=== PATIENT | female | born 1945 | race Caucasian/White ===

== ENCOUNTER → 2019-08-01 15:17 | Outpatient (CLI) | payer SELFPAY ==
--- NOTE | 2019-08-01 15:37 | BI_ITS ---
MAMMOGRAPHY - UNILATERAL SCREENING: RIGHT BREAST REASON FOR EXAM: Female, 73 years old. Routine annual screening examination (unilateral). PERTINENT HISTORY: Personal history of breast cancer. Prior left mastectomy. History mother with breast cancer. TECHNIQUE: Digital unilateral breast kareem (3D mammographic acquisition) in the CC and MLO projections. 2-D mediolateral oblique (MLO) and craniocaudad (CC) views of both breasts were obtained. CAD: Full Field Digital Mammography with Computer Added Detection was performed. COMPARISON: Comparison is made with prior outside examination dated July 29, 2008. FINDINGS: Breast Composition: The breasts are heterogeneously dense, which may obscure small masses. There are no dominant masses or suspicious calcifications. No other significant abnormalities are identified. There has been no significant change since the prior study. BI/SCREEN MAMM (CAD) W/KAREEM UNI R IMPRESSION: Stable unilateral screening mammogram. Yearly follow-up mammogram recommended. (A) ASSESSMENT CATEGORY: BIRADS Category 1: Negative. A letter regarding these results will be sent to the patient by the facility within 30 days. Approximately 10% of breast cancers are not detected by mammography. A normal mammogram should not delay biopsy of a clinically suspicious abnormality. [id number] Electronically Signed: Bartolo Khalil, at 10:37 EDT , Service support ,
== END ==
PROVIDERS: Family Provider Family Medicine; PCP Family Medicine; Referring Provider Internal Medicine Hematology & Oncology; Visit Provider Internal Medicine Hematology & Oncology
DX: Z12.31 Encounter for screening mammogram for malignant neoplasm of breast (principal); Z90.12 Acquired absence of left breast and nipple; Z85.3 Personal history of malignant neoplasm of breast; Z80.3 Family history of malignant neoplasm of breast
CPT/HCPCS: 77061; 77067; G0279

== ENCOUNTER → 2019-10-24 06:00 | Outpatient (CLI) | payer OTHER, SELFPAY ==
[2019-08-07 13:03] VITALS: BMI 44.6
--- NOTE | 2019-10-24 13:01 | STRESSREP ---
Stress Test Report Date: 10-24-19 Procedure: Pharmacologic stress nuclear imaging study Indications: Chest pain; shortness of breath/dyspnea Consent: Per the patient Procedure: The patient underwent pharmacologic (Regadenoson) evaluation with a peak heart rate of 79 beats per minute (53 %predicted maximal heart rate) and a peak blood pressure of 148/70 mmHg. The baseline ECG demonstrated sinus rhythm. The peak pharmacologic ECG demonstrated no obvious ECG changes. There were no cardiac dysrhythmias pretest, during pharmacologic infusion, or recovery. There was no complaint of chest discomfort during pharmacologic infusion or recovery. The examination was discontinued secondary to completion of protocol. Impression: 1. Pharmacologic (Regadenoson) evaluation 2. Peak pharmacologic ECG with no obvious ECG changes. 3. There were no cardiac dysrhythmias pretest, during pharmacologic infusion, or recovery. 4. Nuclear images pending Myocardial perfusion imaging study: Technique: The patient was injected with 12.0 millicuries of technetium 99m Cardiolite and subsequently rest SPECT Cardiolite nuclear imaging was obtained in the horizontal long, vertical long, and short axis views. The patient underwent pharmacologic (Regadenoson) evaluation with a peak heart rate of 79 beats per minute (53 % percent predicted maximal heart rate) and a peak blood pressure of 148/70 mmHg. The patient was injected with 35.0 millicuries of technetium 99m Cardiolite and subsequently stress SPECT Cardiolite nuclear imaging was obtained in the horizontal long, vertical long, and short axis views. A gated Cardiolite study at peak stress was obtained. Interpretation: Rest and stress SPECT Cardiolite nuclear imaging status post realignment, normalization, and attenuation correction demonstrate relative uniform tracer uptake and myocardial perfusion appearing within normal limits. There is end systolic thickening and brightening. The gated Cardiolite study demonstrates myocardial thickening and inward wall motion. The reported LVEF is 73 %. Impression: 1. Rest and stress SPECT Cardiolite nuclear imaging demonstrate relative uniform tracer uptake and myocardial perfusion appearing within normal limits. 2. The gated Cardiolite study reports an LVEF of 73 %. This note was generated with [email or web address] software. It may contain incorrect words, spelling, and punctuation that were not noted in checking the note before signing.
== END ==
PROVIDERS: Family Provider Family Medicine; PCP Family Medicine; Referring Provider Family Medicine; Visit Provider Family Medicine
DX: R07.9 Chest pain, unspecified (principal)
CPT/HCPCS: 78452; 93017; A9500; A4216; J2785

== ENCOUNTER → 2020-08-02 12:58 | Outpatient (CLI) | payer SELFPAY, OTHER ==
[2019-08-07 13:03] VITALS: BMI 44.6
--- NOTE | 2020-08-02 13:02 | BI_ITS ---
MAMMOGRAPHY - UNILATERAL SCREENING: RIGHT BREAST REASON FOR EXAM: Female, 74 years old. Routine annual screening examination (unilateral). PERTINENT HISTORY: Personal history of breast cancer. Mother with breast cancer. Prior left mastectomy. TECHNIQUE: Digital unilateral breast kareem (3D mammographic acquisition) in the CC and MLO projections. 2-D mediolateral oblique (MLO) and craniocaudad (CC) views of both breasts were obtained. CAD: Full Field Digital Mammography with Computer Added Detection was performed. COMPARISON: Comparison is made with prior study dated 08/01/2019. FINDINGS: Breast Composition: The breasts are heterogeneously dense, which may obscure small masses. There are no dominant masses or suspicious calcifications. No other significant abnormalities are identified. There has been no significant change since the prior study. BI/SCREEN MAMM (CAD) W/KAREEM UNI R IMPRESSION: Stable unilateral screening mammogram. Yearly follow-up mammogram recommended. (A) ASSESSMENT CATEGORY: BIRADS Category 1: Negative. A letter regarding these results will be sent to the patient by the facility within 30 days. Approximately 10% of breast cancers are not detected by mammography. A normal mammogram should not delay biopsy of a clinically suspicious abnormality. [id number] Electronically Signed: Bartolo Khalil, at 14:53 EDT , Service support ,
== END ==
PROVIDERS: PCP Family Medicine; Referring Provider Internal Medicine Hematology & Oncology; Visit Provider Internal Medicine Hematology & Oncology
DX: Z12.31 Encounter for screening mammogram for malignant neoplasm of breast (principal); Z85.3 Personal history of malignant neoplasm of breast; Z90.12 Acquired absence of left breast and nipple; Z80.3 Family history of malignant neoplasm of breast
CPT/HCPCS: 77063; 77067

== ENCOUNTER → 2021-08-03 10:26 | Outpatient (CLI) | payer SELFPAY, OTHER ==
[2019-08-07 13:03] VITALS: BMI 44.6
--- NOTE | 2021-08-03 10:29 | BI_ITS ---
MAMMOGRAPHY - UNILATERAL SCREENING: RIGHT BREAST REASON FOR EXAM: Female, 75 years old. Routine annual screening examination (unilateral). PERTINENT HISTORY: Personal history of breast cancer. Prior left mastectomy. Mother with breast cancer. TECHNIQUE: Digital unilateral breast kareem (3D mammographic acquisition) in the CC and MLO projections. 2-D mediolateral oblique (MLO) and craniocaudad (CC) views of both breasts were obtained. CAD: Full Field Digital Mammography with Computer Added Detection was performed. COMPARISON: Comparison is made with prior study dated 08/02/2020 and 08/01/2000. FINDINGS: Breast Composition: The breasts are heterogeneously dense, which may obscure small masses. There are no dominant masses or suspicious calcifications. No other significant abnormalities are identified. There has been no significant change since the prior study. BI/SCREEN MAMM (CAD) W/KAREEM UNI R IMPRESSION: Stable unilateral screening mammogram. Yearly follow-up mammogram recommended. (A) ASSESSMENT CATEGORY: BIRADS Category 1: Negative. A letter regarding these results will be sent to the patient by the facility within 30 days. Approximately 10% of breast cancers are not detected by mammography. A normal mammogram should not delay biopsy of a clinically suspicious abnormality. [id number] Electronically Signed: Bartolo Khalil MD at 11:15 EDT , Service support ,
== END ==
PROVIDERS: PCP Family Medicine; Referring Provider Internal Medicine Hematology & Oncology; Visit Provider Internal Medicine Hematology & Oncology
DX: Z12.31 Encounter for screening mammogram for malignant neoplasm of breast (principal)
CPT/HCPCS: 77063; 77067

== ENCOUNTER 2021-11-08 15:49 | Outpatient (CLI) | payer SELFPAY ==
[2021-11-08 18:03] LABS: Absolute Lymphocyte Count 1.13 X10^3/uL (0.83-4.51); Absolute Neutrophil Count 13.9 X10^3/uL (2.0-7.7); Basophil# 0.05 X10^3/uL; Basophil% 0.3 % (0-1); Eosinophils% 0.6 % (0-5); Hematocrit 36.7 % (37-47); Hemoglobin 11.8 g/dL (12.0-15.0); Lymphocyte # 1.13 X10^3/ul (0.83-4.51); Lymphocyte % 6.8 % (19-41); Mean Corp Hgb Conc 32.2 g/dL (32-36); Mean Corpuscular Hgb 28.6 pg (27.0-32.0); Mean Corpuscular Volume 89.1 fL (81-99); Mean Platelet Vol. 10.5 fl (6.2-12.0); Monocyte# 1.35 X10^3/uL; Monocyte% 8.1 % (0-10); NRBC Flagged by Analyzer 0 % (0-5); Neutrophil # 13.85 X10^3/uL (2.7-7.7); Neutrophil % 83.4 % (47-70); Platelet Count 192 K/mm3 (150-450); RBC Distribution Width SD 45.3 fl (35.1-43.9); Red Blood Count 4.12 M/mm3 (4.2-5.4); White Blood Count 16.6 K/mm3 (4.4-11.0)
[2021-11-08 18:24] LABS: Erythrocyte Sedimentation Rate 63 mm/hr (0-30)
== END 2021-11-08 23:59 | disposition short-term general hospital (02) ==
PROVIDERS: Referring Provider Specialist; Visit Provider Specialist
DX: Z96.652 Presence of left artificial knee joint (principal)
CPT/HCPCS: 36415; 85025; 85652; 86140

== ENCOUNTER 2021-11-10 09:53 | Inpatient (IN) | payer OTHER, SELFPAY ==
[2021-11-10] VITALS (7 sets, daily range): BP systolic 124–148; BP diastolic 47–63; PULSE 66–72; RESP 14–26; TEMP 36.4–37.1; O2SAT 93–100; BMI 39.3; BMI 39.7
--- NOTE | 2021-11-10 10:45 | EKG12_ITS ---
Test Reason : LOWER QUAD PAIN Blood Pressure : / mmHG Vent. Rate : 063 BPM Atrial Rate : 063 BPM P-R Int : 160 ms QRS Dur : 078 ms QT Int : 406 ms P-R-T Axes : 012 033 018 degrees QTc Int : 415 ms Sinus rhythm with occasional Premature ventricular complexes Otherwise normal ECG Confirmed by CHRISTY BLACKBURN, GIGI ([id number]), newspaper editor managing DEMETRA GIL ([id number]) on 11/14/2021 10:27:14 AM Referred By: REILLY Confirmed By:GIGI HARRISON MD
[2021-11-10 10:50] LABS: Absolute Lymphocyte Count 0.99 X10^3/uL (0.83-4.51); Absolute Neutrophil Count 10.1 X10^3/uL (2.0-7.7); Basophil# 0.03 X10^3/uL; Basophil% 0.2 % (0-1); Eosinophil# 0.01 X10^3/uL; Eosinophils% 0.1 % (0-5); Hematocrit 36.1 % (37-47); Hemoglobin 11.5 g/dL (12.0-15.0); Lymphocyte # 0.99 X10^3/ul (0.83-4.51); Lymphocyte % 7.9 % (19-41); Mean Corp Hgb Conc 31.9 g/dL (32-36); Mean Corpuscular Hgb 28.2 pg (27.0-32.0); Mean Corpuscular Volume 88.5 fL (81-99); Mean Platelet Vol. 10.3 fl (6.2-12.0); Monocyte# 1.34 X10^3/uL; Monocyte% 10.7 % (0-10); NRBC Flagged by Analyzer 0 % (0-5); Neutrophil # 10.12 X10^3/uL (2.7-7.7); Neutrophil % 80.5 % (47-70); Platelet Count 168 K/mm3 (150-450); RBC Distribution Width CV 14.3 % (11.6-14.6); RBC Distribution Width SD 46.1 fl (35.1-43.9); Red Blood Count 4.08 M/mm3 (4.2-5.4); White Blood Count 12.6 K/mm3 (4.4-11.0)
--- NOTE | 2021-11-10 11:05 | ED.VIS.LOWEX ---
HPI History of Present Illness Chief Complaint: Lower Extremity Injury Narrative Narrative: 76-year-old female presenting with left knee pain. She states been hurting since Sunday. Patient states he was seen in urgent care on Sunday and they did blood work and an x-ray of the left knee. She states that she was told sent home from the urgent care. She has been using a wheelchair at home. She does not usually require this. She states that her son went and faxed 1 for her. She presents today because the urgent care called her and told her she had abnormal lab work. Patient has not had a fever or chills. She does note increasing pain of the left knee. She is unable to bear weight on this. She notices she notes it is more swollen. [facility] Medical History Arthritis HTN (hypertension) LEFT KNEE IRRIGATION Thyroid disease Home Medications Fish Oil 1,000 mg PO DAILY 05/18/15 [History Last Taken 12/15/15] ferrous sulfate 325 mg PO DAILY 05/18/15 [History Last Taken 12/15/15] fluoxetine 20 mg PO DAILY 05/18/15 [History Last Taken 12/15/15] acetaminophen [Tylenol] 650 mg PO Q6H PRN PRN #0 tablet 10/23/15 [Rx Last Taken 12/15/15] alprazolam 1 mg PO Q6H PRN PRN #0 tablet 10/23/15 [Rx Last Taken 01/19/16 1 MG] pyridoxine (vitamin B6) 100 mg PO DAILY 12/15/15 [History Last Taken 12/15/15] aspirin 81 mg PO DAILY@0800 08/02/17 [History Last Taken Unknown] Quiet 0.75 mg PO QHS 08/05/18 [History Last Taken Unknown] hydrochlorothiazide 12.5 mg PO DAILY 08/09/20 [History Last Taken Unknown] levothyroxine 112 mcg tablet 125 mcg PO DAILY tab 08/10/21 [History Last Taken Unknown] Allergy/AdvReac Type Severity Reaction Status Date / Time celecoxib [From Celebrex] AdvReac Severe Nausea Verified 11/10/21 09:55 Family History Father Bone cancer Mother Breast cancer Surgical History History of cataract surgery History of mastectomy History of total left knee replacement History of total right knee replacement Social History Smoking Status: Never smoker ROS ROS ED Constitutional Constitutional ED: Denies chills or fever(s) Eyes Eyes: Denies blurry vision or diplopia ENT ENT ED: Denies rhinorrhea or sore throat Cardiovascular Cardiovascular: Denies chest pain or palpitations Respiratory/Chest Respiratory/Chest: Denies cough or dyspnea Gastrointestinal Gastrointestinal: Denies abdominal pain or nausea Genitourinary Genitourinary ED: Denies dysuria or hematuria Musculoskeletal Musculoskeletal: Reports other Details: Left knee pain and swelling Integumentary Reports other Details: Erythema and warmth to the left knee Neurologic Neurologic: Denies headache(s) or paresthesias Psychiatric Psychiatric: Denies anxiety or depression EXAM Physical Exam Const Vital Signs: 11/10/21 09:54 11/10/21 10:45 11/10/21 11:35 Temperature 98.1 F 97.9 F Temperature Source Temporal Temporal Pulse Rate 67 Respiratory Rate 14 Blood Pressure 124/59 H Blood Pressure Mean 80 Pulse Ox 100 Oxygen Delivery Method Room Air Room Air 11/10/21 11:53 11/10/21 13:21 Temperature 98 F 97.8 F Temperature Source Temporal Temporal Pulse Rate 66 Respiratory Rate 26 H Blood Pressure 140/52 H Blood Pressure Mean 81 Pulse Ox 96 Oxygen Delivery Method Room Air Positive obese General Appearance ED: NAD Nutritional Appearance: obese HEENT normocephalic and atraumatic Neck full ROM Resp normal respiratory effort and clear to auscultation bilaterally Cardio regular rate and regular rhythm Extremity Extremity Narrative: Swelling and increased warmth to the left knee. There are some areas of erythema around the knee. Patient unable to range her own knee however she does allow me to range her knee. Pain is elicited with range of motion. Neuro oriented x3 Sensorium / Orientation: alert Psych mental status grossly normal MDM MDM MDM Narrative Medical decision making narrative: After discussion with the patient states he has a history of an infected knee on the left. She states that Dr. Murphy was her orthopedic surgeon. She states she had had to have her prosthetic removed due to infection and this was replaced later. I spoke with Dr. Murphy and discussed the x-ray finding of the knee with a fracture of the lateral femoral condyle and that the patient's knee was swollen and red. He recommended arthrocentesis and admission for septic knee. Patient noted to have a 16,000 white count on Sunday and today it is 12.6. Creatinine is 1.17 and near baseline. Potassium slightly low at 3.4. Lactic acid 1.3. CRP is elevated to 341 and sedimentation rate is elevated at 99. Both of these are higher than previous. Dr. Murphy requested admit the patient to medicine. He states he will come by and drained the knee and send it for studies. Patient will likely need this washed out surgically. Impression: 1. Septic left knee joint Lab Data Attestation: I reviewed the patient's lab results. Labs: Laboratory Results - last 24 hr 11/10/21 11/10/21 11/10/21 10:40 10:40 11:03 WBC 12.6 H RBC 4.08 L Hgb 11.5 L Hct 36.1 L MCV 88.5 MCH 28.2 MCHC 31.9 L RDW Std Deviation 46.1 H RDW Coeff of Luz Maria 14.3 Plt Count 168 MPV 10.3 Immature Gran % (Auto) 0.600 Neut % (Auto) 80.5 H Lymph % (Auto) 7.9 L [place] % (Auto) 10.7 H Eos % (Auto) 0.1 Baso % (Auto) 0.2 Absolute Neuts (auto) 10.1 H Absolute Lymphs (auto) 0.99 Nucleated RBC % 0 ESR 99 H PT INR APTT Sodium 136 Potassium 3.4 L Chloride 102 Carbon Dioxide 27.0 Anion Gap 7 BUN 24 H Creatinine 1.17 H Estim Creat Clear Calc 37.96 Est GFR (MDRD) Af Amer 58 L Est GFR (MDRD) Non-Af 48 L BUN/Creatinine Ratio 20.5 H Glucose 111 H Lactic Acid Calcium 8.8 Total Bilirubin 0.70 Cancelled Direct Bilirubin Cancelled AST 18 ALT 28 Alkaline Phosphatase 89 Troponin I High Sens 6 C-React Prot Ext Range 341.00 H Total Protein 7.7 Albumin 2.5 L Globulin 5.2 H Albumin/Globulin Ratio 0.5 L 11/10/21 11/10/21 11:25 11:30 WBC RBC Hgb Hct MCV MCH MCHC RDW Std Deviation RDW Coeff of Lu Zmaria Plt Count MPV Immature Gran % (Auto) Neut % (Auto) Lymph % (Auto) [place] % (Auto) Eos % (Auto) Baso % (Auto) Absolute Neuts (auto) Absolute Lymphs (auto) Nucleated RBC % ESR PT 14.4 INR 1.2 APTT 33.1 Sodium Potassium Chloride Carbon Dioxide Anion Gap BUN Creatinine Estim Creat Clear Calc Est GFR (MDRD) Af Amer Est GFR (MDRD) Non-Af BUN/Creatinine Ratio Glucose Lactic Acid 1.3 Calcium Total Bilirubin Direct Bilirubin AST ALT Alkaline Phosphatase Troponin I High Sens C-React Prot Ext Range Total Protein Albumin Globulin Albumin/Globulin Ratio Radiography Diagnostic Testing: Clinical Impression(s) from Imaging Studies Chest X-Ray 11/10/21 13:06 IMPRESSION: Hyperinflation. The lungs are clear. Electronically Signed: Bartolo Khalil MD at 13:26 EST , Service support , Discharge Plan Triage Chief Complaint: Lower Extremity Injury ED Provider: Jaquan Gomes Dx/Rx/DC Orders Prescriptions: No Action ferrous sulfate 325 MG tablet 325 mg PO DAILY RF: 0 fluoxetine 20 MG capsule 20 mg PO DAILY RF: 0 Fish Oil 500 MG capsule 1,000 mg PO DAILY RF: 0 acetaminophen [Tylenol] 325 MG tablet 650 mg PO Q6H PRN PRN (Reason: PAIN) Qty: 0 RF: 0 alprazolam 0.5 MG tablet 1 mg PO Q6H PRN PRN (Reason: ANXIETY) Qty: 0 RF: 0 pyridoxine (vitamin B6) 100 MG tablet 100 mg PO DAILY RF: 0 levothyroxine 112 mcg tablet 125 mcg PO DAILY RF: 0 aspirin 81 MG tablet,chewable 81 mg PO DAILY@0800 RF: 0 Quiet 0.25 MG 0.75 mg PO QHS RF: 0 hydrochlorothiazide 25 MG tablet 12.5 mg PO DAILY RF: 0 Primary Care Provider: Malena Vargas
[2021-11-10 11:10] LABS: Erythrocyte Sedimentation Rate 99 mm/hr (0-30)
[2021-11-10 11:14] LABS: ALB/GLOB Ratio 0.5 RATIO (0.9-2.4); AST(SGOT) 18 U/L (15-37); Alanine Aminotransfer ALT/SGPT 28 U/L (13-56); Albumin, Serum 2.5 g/dL (3.2-5.0); Alkaline Phosphatase 89 U/L (45-117); Anion Gap 7 (5-15); BUN 24 mg/dL (7-18); BUN/Creat Ratio 20.5 RATIO (10-20); Calcium,Total 8.8 mg/dL (8.5-10.1); Chloride 102 mmol/L (98-107); Creatinine, Serum 1.17 mg/dL (0.55-1.02); EST Glomerular Filtration Rate 48 mL/min (>60); Est Glom Filt Rate - Afr Amer 58 mL/min (>60); Estimated Creatinine Clearance 37.96 ml/min; Globulin 5.2 g/dL (2.2-4.2); Glucose 111 mg/dL (74-106); Potassium 3.4 mmol/L (3.5-5.1); Protein, Total 7.7 g/dL (6.4-8.2); Sodium Level 136 mmol/L (136-145); Troponin-I HS 6 pg/mL (3.0-54.0)
[2021-11-10] MEDS: Ondansetron 4 MG/2 ML Vial IV (11:15)
[2021-11-10] MEDS: Morphine 4 MG/ML Syringe IV (11:15)
[2021-11-10] MEDS: 0.9% Normal Saline 1,000 ML 999 ML IV (11:16)
[2021-11-10] MEDS: Lidocaine 1% (20 ml mdv) 20 ML Vial INFILT (11:17)
[2021-11-10 11:49] LABS: International Normalized Ratio 1.2; Prothrombin Time (Protime)PT. 14.4 SECONDS (11.7-14.9)
[2021-11-10 11:50] LABS: Partial Thromboplast Time 33.1 Seconds (24.1-36.2)
[2021-11-10 12:00] LABS: Lactic Acid 1.3 mmol/L (0.4-1.9)
--- NOTE | 2021-11-10 13:06 | RAD_ITS ---
STUDY: X-RAY CHEST REASON FOR EXAM: Female, 76 years old. Preoperative evaluation. TECHNIQUE: Single AP portable view of the chest. COMPARISON: Comparison is made with prior study dated 12/15/2015. FINDINGS: EKG electrodes are seen. There is hyperinflation of the lungs consistent with chronic obstructive lung disease (COPD). There is no demonstrated pleural abnormality. Normal size heart. Normal mediastinum and [place]. Normal visualized pulmonary arteries. There is atherosclerotic calcification of the aortic arch with tortuosity. There are diffuse degenerative changes of the visualized thoracic spine. Normal visualized ribs, clavicles, and shoulders. There is no demonstrated abnormality of the visualized soft tissue structures of the upper abdomen. RAD/Chest 1 View (Portable) IMPRESSION: Hyperinflation. The lungs are clear. Electronically Signed: Bartolo Khalil MD at 13:26 EST , Service support ,
--- NOTE | 2021-11-10 13:23 | NURSING ---
ICU [facility]PT[facility]
--- NOTE | 2021-11-10 13:46 | HP.PCM.HOS_ITS ---
HPI - General HPI Narrative KARINE FAIRCHILD, is a 76 F who presents with several day history of left knee pain and swelling. Saw urgent care on 11/08 and had a CRP of 247, left knee xray that showed a possible nondisplaced fracture involving the lateral femoral condyle and an effusion. She was sent home. Dr. Murphy advised patient come to the emergency room. In the emergency room, her white count was 12.6 down from 16.6 from the fourth. CRP was 341. Dr. Gomes, the emergency room, spoke with Dr. Murphy who said he would see the patient and perform a bedside arthrocentesis later on today. Patient states that this feels similar to when she had a previous septic arthritis back in . [facility] Medical History Arthritis HTN (hypertension) LEFT KNEE IRRIGATION Thyroid disease Home Medications Fish Oil 1,000 mg PO DAILY 05/18/15 [History Last Taken 12/15/15] ferrous sulfate 325 mg PO DAILY 05/18/15 [History Last Taken 12/15/15] fluoxetine 20 mg PO DAILY 05/18/15 [History Last Taken 12/15/15] acetaminophen [Tylenol] 650 mg PO Q6H PRN PRN #0 tablet 10/23/15 [Rx Last Taken 12/15/15] alprazolam 1 mg PO Q6H PRN PRN #0 tablet 10/23/15 [Rx Last Taken 01/19/16 1 MG] pyridoxine (vitamin B6) 100 mg PO DAILY 12/15/15 [History Last Taken 12/15/15] aspirin 81 mg PO DAILY@0800 08/02/17 [History Last Taken Unknown] Quiet 0.75 mg PO QHS 08/05/18 [History Last Taken Unknown] hydrochlorothiazide 12.5 mg PO DAILY 08/09/20 [History Last Taken Unknown] levothyroxine 112 mcg tablet 125 mcg PO DAILY tab 08/10/21 [History Last Taken Unknown] Allergy/AdvReac Type Severity Reaction Status Date / Time celecoxib [From Celebrex] AdvReac Severe Nausea Verified 11/10/21 09:55 Family History Father Bone cancer Mother Breast cancer Surgical History History of cataract surgery History of mastectomy History of total left knee replacement History of total right knee replacement Social History Smoking Status: Never smoker ROS ROS Narrative Complains of pain in her left knee limited due to the swelling that she has. Denies any fever chills. All review of systems were negative except as mentioned above in the history of present illness and the other review of systems. Vital Signs Vital Signs Vital Signs: 11/10/21 09:54 11/10/21 10:45 11/10/21 11:35 Temperature 36.7 C 36.6 C Temperature Source Temporal Temporal Pulse Rate 67 Respiratory Rate 14 Blood Pressure 124/59 H Blood Pressure Mean 80 Pulse Ox 100 Oxygen Delivery Method Room Air Room Air 11/10/21 11:53 11/10/21 13:21 Temperature 36.6 C 36.6 C Temperature Source Temporal Temporal Pulse Rate 66 Respiratory Rate 26 H Blood Pressure 140/52 H Blood Pressure Mean 81 Pulse Ox 96 Oxygen Delivery Method Room Air Weight Weight: 107.2 kg Body Mass Index (BMI) 39.3 Physical Exam Const alert General Appearance: cooperative HEENT normocephalic Neck no lymphadenopathy Resp normal respiratory effort Cardio regular rate, regular rhythm, S1 normal heart sound and S2 normal heart sound GI normal to inspection, nondistended, normoactive bowel sounds, soft to palpation, non-tender and non-distended Extremity normal to inspection Extremity Narrative: Left knee effusion. Limited mobility of her left knee due to the effusion. Slightly tender but not hot nor warm. No erythema around her left knee. Right knee is unremarkable with full range of motion. No effusion noted. Skin no rashes or lesions noted Neuro Sensorium / Orientation: awake and alert Psych affect normal Results Lab / Micro Data Attestation: I reviewed the patient's lab results. Result Diagrams: 11/10/21 10:40 11/10/21 10:40 Labs: Laboratory Results - last 24 hr 11/10/21 10:40: WBC 12.6 H, RBC 4.08 L, Hgb 11.5 L, Hct 36.1 L, MCV 88.5, MCH 28.2, MCHC 31.9 L, RDW Std Deviation 46.1 H, RDW Coeff of Luz Maria 14.3, Plt Count 168, MPV 10.3, Immature Gran % (Auto) 0.600, Neut % (Auto) 80.5 H, Lymph % (Auto) 7.9 L, [place] % (Auto) 10.7 H, Eos % (Auto) 0.1, Baso % (Auto) 0.2, Absolute Neuts (auto) 10.1 H, Absolute Lymphs (auto) 0.99, Nucleated RBC % 0, ESR 99 H 11/10/21 10:40: Sodium 136, Potassium 3.4 L, Chloride 102, Carbon Dioxide 27.0, Anion Gap 7, BUN 24 H, Creatinine 1.17 H, Estim Creat Clear Calc 37.96, Est GFR (MDRD) Af Amer 58 L, Est GFR (MDRD) Non-Af 48 L, BUN/Creatinine Ratio 20.5 H, Glucose 111 H, Calcium 8.8, Total Bilirubin 0.70, AST 18, ALT 28, Alkaline Phosphatase 89, Troponin I High Sens 6, C-React Prot Ext Range 341.00 H, Total Protein 7.7, Albumin 2.5 L, Globulin 5.2 H, Albumin/Globulin Ratio 0.5 L 11/10/21 11:03: Total Bilirubin Cancelled, Direct Bilirubin Cancelled 11/10/21 11:25: Lactic Acid 1.3 11/10/21 11:30: PT 14.4, INR 1.2, APTT 33.1 Micro: Microbiology 11/10/21 11:20 Nasal Secretion SARS-CoV-2 Antigen (Rapid) - Final Radiology Impression Chest X-Ray 11/10/21 13:06 IMPRESSION: Hyperinflation. The lungs are clear. Electronically Signed: Bartolo Khalil MD at 13:26 EST , Service support , Assessment & Plan Assessment/Plan (1) Effusion, left knee: PLAN: 1. Possible septic arthritis of the left knee Patient is not septic Does have an elevated white count as well as elevated CRP Plan is for an arthrocentesis to be performed by Dr. Murphy today After the arthrocentesis, will initiate antibiotics with broad-spectrum with Pipracil and/tazobactam and vancomycin. Follow-up cultures from the arthrocentesis and adjust antibiotics accordingly if it is truly infected. And if infected further management per orthopedics and would likely consul infectious disease at that point. 2. VTE prophylaxis: Lovenox 3. CODE STATUS: Addressed with the patient and her . Patient wishes to be DNR Com[facility] Care arrest. Advised them both that she can change her mind at any point during her hospitalization. Charges/Coding Visit Charges Inpatient E&M: 55763 Init Hosp L2
--- NOTE | 2021-11-10 14:01 | ED.RN ---
multiple unsuccessful attempts made by ED staff and lab for second set of blood cultures. Dr Gomes made aware.
[2021-11-10 15:14] LABS: Bacteria 0 SEEN /hpf (None Seen); Mucous, Urine 0 SEEN /hpf (<or=2+)
[2021-11-10 15:19] LABS: Color, Urine Yellow (Yellow); Glucose, Dipstick Normal (Normal); Ketone-Dipstick Negative (Negative); Leukocyte Esterase-Dipstick 500 /ul (Negative); Nitrite-Dipstick Negative (Negative); Occult Blood-Urine 25 /ul (Negative); Protein-Dipstick 100 mg/dl (Negative); Urine Bilirubin Dipstick Negative (Negative); Urine Clarity Clear (Clear); Urine Urobilinogen 1 mg/dl (Normal)
--- NOTE | 2021-11-10 15:20 | CASEMGMT ---
Face to Face with patient for initial transition planning/care coordination assessment. RN CM introduced self and role at [facility]. Patient alert and oriented, in no apparent distress, able to answer all questions appropriately. Patient's Beau present at bedside. Care providers, pharmacy, and demographics verified. PCP: Malena Vargas Pharmacy: [facility] Insurance: [employer] Prescription Benefit: No Living Will/HPOA: Patient denies having living will or HPOA. LNOK: - Beau Ceballos Living Arrangements: Patient lives with in one story house with 3 steps to enter the home with handrail. Patient states independent with ADLs prior to onset of knee pain 11/07/21, but now unable to bear weight and requires assistance with ADLs. Patient's son lives across the street and is available to help. Smoking/ETOH: Never smoker, denies ETOH use Transportation: Hired fuel truck driver DME/HHC/SNF: Patient has been using wheelchair for mobility prior to hospitalization due to severe knee pain. Patient also has cane, walker, shower chair and grab bars available in the home. Patient has had previous HHC and home IV antibiotic infusions for septic joint with [facility] and states would be interested in using these services again, if indicated. Denies previous SNF stays. RN CM to follow for any discharge planning/needs. Patient voices no concerns/needs at this time. Advised patient and to ask for CM if any questions/concerns/needs arise. Voices understanding. Plan: home with HHC, pending further medical evaluation
[2021-11-10 16:06] LABS: Squamous Epithelial Cells - UA 0-5 SEEN /hpf (5-10); White Blood Cells 5-10 SEEN /hpf (0-5)
[2021-11-10 16:08] LABS: Red Blood Cells-Urine 0-5 SEEN /hpf (0-5); Renal Epithelial Cells 0-5 SEEN /hpf (0-5)
--- NOTE | 2021-11-10 17:15 | ED.RN ---
Dr Murphy at bedside to drain knee
[2021-11-10 17:30] LABS: Pathologist Comment May follow
--- NOTE | 2021-11-10 17:33 | CON.PCM_ITS ---
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 She presents today with concerns for similar issue. An aspiration was done. Please see procedure note following however we did obtain 15 cc of grossly purulent fluid. Based on patient's history as well as a appropriate aspiration today we will start antibiotics. She was previously pansensitive we will start ceftriaxone and vancomycin. We will make the patient n.p.o. after midnight. Plans will be for irrigation debridement removal of the implant and placement of an antibiotic spacer. Patient understands risks of continued infection including risk for repeat surgeries, blood loss requiring transfusion, DVTs, PEs, nervous damage, loss of extremity, loss of life and general risk of anesthesia as well as risk of fractures during surgery and need for osteotomy are all possible. Patient wished to proceed. I do not see how we can salvage the implants based on the radiographs consistent with tibial cement mantle loosening. We will attempt to arrange surgery for the next 24 to 48 hours d epending on or availability. At this point if we do like to delay surgery for medical reasons it would be unlikely to change her overall outcome while he would like to take care of this expediently we will do what is medically appropriate. Procedure: Patient's left superior lateral suprapatellar portal was palpated. The area was cleaned with Betadine then chlorhexidine and alcohol sterile gloves were donned. 18-gauge needle was used to remove 15 cc of grossly purulent fluid from the knee. Band-Aid was placed afterwards. HPI Consult Data Date of Consult: 11/10/21 HPI Narrative Reason for Consultation: Left knee pain HPI Narrative: KARINE FAIRCHILD, is a 76 F who morbidly obese with a history of left knee infection status post total knee replacement. Patient had original total knee replacement in 2013. She had irrigation debridement with retainment of implants in May 2015. She had continued infection in October 2015 where we did an explant and placed an antibiotic spacer. She was subsequently replanted and January 2016. Cultures at that time were positive for Enterococcus faecalis. Patient notes she was doing well she had her 3-year follow-up in 2018 without any significant issues. However she has had some continued pain and soreness in the knee especially with activities throughout that time. On Sunday of this week she was noted to have increased pain. Pain is in the knee and down the fernandez bone. She went to the urgent care and was noted to have extremely elevated ESR and CRP. She was directed to the emergency department from there. Today she is unable to bear weight. She denies any fevers chills or night sweats. No erythema of the knee. However the knee has significantly increased in size due to swelling. [facility] Medical History (Updated 11/10/21 @ 17:[address] Judson Murphy MD) Arthritis HTN (hypertension) Infection of total left knee replacement LEFT KNEE IRRIGATION Thyroid disease Home Medications Fish Oil 1,000 mg PO DAILY 05/18/15 [History Last Taken 12/15/15] ferrous sulfate 325 mg PO DAILY 05/18/15 [History Last Taken 12/15/15] fluoxetine 20 mg PO DAILY 05/18/15 [History Last Taken 12/15/15] acetaminophen [Tylenol] 650 mg PO Q6H PRN PRN #0 tablet 10/23/15 [Rx Last Taken 12/15/15] alprazolam 1 mg PO Q6H PRN PRN #0 tablet 10/23/15 [Rx Last Taken 01/19/16 1 MG] pyridoxine (vitamin B6) 100 mg PO DAILY 12/15/15 [History Last Taken 12/15/15] aspirin 81 mg PO DAILY@0800 08/02/17 [History Last Taken Unknown] Quiet 0.75 mg PO QHS 08/05/18 [History Last Taken Unknown] hydrochlorothiazide 12.5 mg PO DAILY 08/09/20 [History Last Taken Unknown] levothyroxine 112 mcg tablet 125 mcg PO DAILY tab 08/10/21 [History Last Taken Unknown] Allergy/AdvReac Type Severity Reaction Status Date / Time celecoxib [From Celebrex] AdvReac Severe Nausea Verified 11/10/21 09:55 Family History Father Bone cancer Mother Breast cancer Surgical History (Updated 11/10/21 @ 17:[address] Judson Murphy MD) History of cataract surgery History of mastectomy History of total left knee replacement History of total right knee replacement Status post revision of total replacement of left knee Social History Smoking Status: Never smoker ROS Constitutional Constitutional: Reports systems reviewed and no addt'l complaints, except as documented Physical Exam Const alert and oriented x3 Constitutional Narrative: obese General Appearance: cooperative and in distress Orientation / Consciousness: awake, oriented to person, oriented to place and oriented to time Exam Limitations: physical limitations Nutritional Appearance: overweight HEENT normocephalic Nose: nares normal Mouth: oral and palatal mucosa normal Eyes PERRL Resp normal respiratory effort Cardio regular rate Jugular Venous Distention: Negative for JVD GI non-distended Extremity Extremity Narrative: Left lower extremity: Pain with gentle range of motion. Tenderness along the tibia shaft. Limited strength exam secondary to pain. Massive effusion. No erythema. Tenderness palpation around the entire knee. Neurovascular intact distally with sensation intact light touch saphenous, sural, superficial peroneal, deep peroneal tibial nerve distributions. Positive dorsiflexion EHL plantar flexion. Skin no rashes or lesions noted and no wounds Neuro Speech: speech normal Psych mental status grossly normal Appearance: grossly normal Lab / Micro Data Result Diagrams: 11/10/21 10:40 11/10/21 10:40 Labs: Laboratory Results - last 24 hr 11/10/21 10:40: WBC 12.6 H, RBC 4.08 L, Hgb 11.5 L, Hct 36.1 L, MCV 88.5, MCH 2 8.2, MCHC 31.9 L, RDW Std Deviation 46.1 H, RDW Coeff of Luz Maria 14.3, Plt Count 168, MPV 10.3, Immature Gran % (Auto) 0.600, Neut % (Auto) 80.5 H, Lymph % (Auto) 7.9 L, [place] % (Auto) 10.7 H, Eos % (Auto) 0.1, Baso % (Auto) 0.2, Absolute Neuts (auto) 10.1 H, Absolute Lymphs (auto) 0.99, Nucleated RBC % 0, ESR 99 H 11/10/21 10:40: Sodium 136, Potassium 3.4 L, Chloride 102, Carbon Dioxide 27.0, Anion Gap 7, BUN 24 H, Creatinine 1.17 H, Estim Creat Clear Calc 37.96, Est GFR (MDRD) Af Amer 58 L, Est GFR (MDRD) Non-Af 48 L, BUN/Creatinine Ratio 20.5 H, Glucose 111 H, Calcium 8.8, Total Bilirubin 0.70, AST 18, ALT 28, Alkaline Phosphatase 89, Troponin I High Sens 6, C-React Prot Ext Range 341.00 H, Total Protein 7.7, Albumin 2.5 L, Globulin 5.2 H, Albumin/Globulin Ratio 0.5 L 11/10/21 11:03: Total Bilirubin Cancelled, Direct Bilirubin Cancelled 11/10/21 11:25: Lactic Acid 1.3 11/10/21 11:30: PT 14.4, INR 1.2, APTT 33.1 11/10/21 15:10: Urine Color Yellow, Urine Clarity Clear, Urine pH 5.0, Ur Specific [place] 1.020, Urine Protein 100 H, Urine Glucose (UA) Normal, Urine Ketones Negative, Urine Occult Blood 25 H, Urine Nitrite Negative, Urine Bilirubin Negative, Urine Urobilinogen 1 H, Ur Leukocyte Esterase 500 H, Urine RBC 0-5 SEEN, Urine WBC 5-10 SEEN, Ur Squamous Epith Cells 0-5 SEEN, Ur Renal Epithelial Cell 0-5 SEEN, Urine Bacteria 0 SEEN, Urine Mucus 0 SEEN Micro: Microbiology 11/10/21 11:20 Nasal Secretion SARS-CoV-2 Antigen (Rapid) - Final Radiology Impression Chest X-Ray 11/10/21 13:06 IMPRESSION: Hyperinflation. The lungs are clear. Electronically Signed: Bartolo Khalil MD at 13:26 EST , Service support , Left knee radiographs were reviewed from Sunday 3. Patient has an appropriately aligned knee replacement however, there is lucencies around the entirety of the tibial cement mantle. Do not see the proximal aspect of the femoral cement mantle on radiographs. We will order new femur x-rays.
--- NOTE | 2021-11-10 17:39 | PCS.PANDOC ---
PANDEMIC DOCUMENTATION INITIATED: Date: 06/20/2021 Time: 190
--- NOTE | 2021-11-10 18:35 | RAD_ITS ---
EXAM: XR LEFT FEMUR, 2 VIEWS CLINICAL INDICATION: pain Technologist Notes INFECTION WITH SEVERE PAIN. HAD SURGERY IN 2014. TECHNIQUE: Frontal and lateral views of the left femur. This report was created using [employer] report generation technology. COMPARISON: Nov 08 2021 2:19pm. FINDINGS: BONES/JOINTS: Total left knee arthroplasty. Suprapatellar effusion. Questionable fracture involving the lateral femoral condyle. No subluxation. Normal alignment. No sclerotic or destructive changes observed. SOFT TISSUES: Unremarkable. No soft tissue swelling or gas. No radiopaque foreign body. RAD/Femur Min 2 Views IMPRESSION: Total left knee arthroplasty. Suprapatellar effusion. Questionable fracture involving the lateral femoral condyle. Electronically Signed: Santy Lee MD at 19:26 EST , Service support ,
[2021-11-10 18:54] LABS: AUTO B FLUID DILUENT BKGD CT WBC <0.1 RBC <0.01 (W<.1,R<.01)
[2021-11-10 18:55] LABS: Appearance /Synovial Fluid Turbid (CLEAR); CRYSTALS, BODY FLUID See PATH REV; Color / Synovial Fluid Yellow (Pale Yellow); Source / Synovial Fluid KNEE; Source- Body Fluid SYNOVIAL
[2021-11-10 18:57] LABS: RBC /Synovial Fluid 0.077 10^6/uL (0)
[2021-11-10 19:27] LABS: Body Fluid QC Type(s) BF1Q,BF2Q; Monocyte /Synovial Fluid 2 %; Neutrophil 98 % (0-25)
[2021-11-10] MEDS: ALPRAZolam 0.5 MG Tablet 1 MG PO (19:47)
[2021-11-10] MEDS: Acetaminophen 325 MG Tablet 650 MG PO (19:47)
[2021-11-10] MEDS: 0.9% Saline Lock 10 ML Syringe IV (19:48)
--- NOTE | 2021-11-10 19:59 | PCM.RX.CS ---
Consult Pharmacy has been consulted to manage selected antiobiotic: Vancomycin Type of Consult: New start Prior Doses of Antibiotics Received/Current Regimen: Medications Vancomycin HCl 2,000 mg/ (Sodium Chloride) 540 mls @ 250 mls/hr IV X1 ONE Stop: 11/10/21 22:09 Last Admin: 11/10/21 19:53 Dose: 0 mls/hr Documented by: Labs: Sodium 136 mmol/L (136-145) 11/10/21 10:40 Potassium 3.4 mmol/L (3.5-5.1) L 11/10/21 10:40 Chloride 102 mmol/L (98-107) 11/10/21 10:40 Carbon Dioxide 27.0 mmol/L (21.0-32.0) 11/10/21 10:40 Anion Gap 7 (5-15) 11/10/21 10:40 BUN 24 mg/dL (7-18) H 11/10/21 10:40 Creatinine 1.17 mg/dL (0.55-1.02) H 11/10/21 10:40 Est GFR (MDRD) Af Amer 58 mL/min (>60) L 11/10/21 10:40 Est GFR (MDRD) Non-Af 48 mL/min (>60) L 11/10/21 10:40 BUN/Creatinine Ratio 20.5 RATIO (10-20) H 11/10/21 10:40 Glucose 111 mg/dL (74-106) H 11/10/21 10:40 Microbiology: Microbiology 11/10/21 17:23 Fluid - Synovial (joint) Gram Stain - Preliminary 11/10/21 11:20 Nasal Secretion SARS-CoV-2 Antigen (Rapid) - Final Goal Trough: 15-20 mcg/mL Pharmacy Plan for Drug Dosinmg IV x1, 1500mg IV q24h with trough prior to 3rd dose. Pharmacy Service will continue to monitor and adjust dosing as required. Follow-Up Labs: Trough Vancomycin - 11/12 @ 1930
[2021-11-11] VITALS (10 sets, daily range): BP systolic 113–179; BP diastolic 47–76; PULSE 68–87; RESP 10–26; TEMP 36.3–37.1; O2SAT 85–99; BMI 39.7
[2021-11-11] MEDS: QUEtiapine 25 MG Tablet 75 MG PO (00:51)
[2021-11-11 06:23] LABS: Absolute Lymphocyte Count 0.83 X10^3/uL (0.83-4.51); Absolute Neutrophil Count 8.1 X10^3/uL (2.0-7.7); Basophil# 0.03 X10^3/uL; Basophil% 0.3 % (0-1); Eosinophil# 0.01 X10^3/uL; Eosinophils% 0.1 % (0-5); Hematocrit 30.7 % (37-47); Hemoglobin 9.7 g/dL (12.0-15.0); Lymphocyte # 0.83 X10^3/ul (0.83-4.51); Mean Corp Hgb Conc 31.6 g/dL (32-36); Mean Corpuscular Hgb 27.9 pg (27.0-32.0); Mean Corpuscular Volume 88.2 fL (81-99); Mean Platelet Vol. 10.7 fl (6.2-12.0); Monocyte# 1.26 X10^3/uL; Monocyte% 12.2 % (0-10); NRBC Flagged by Analyzer 0 % (0-5); Neutrophil % 78.3 % (47-70); Platelet Count 171 K/mm3 (150-450); RBC Distribution Width CV 14.6 % (11.6-14.6); RBC Distribution Width SD 47.1 fl (35.1-43.9); Red Blood Count 3.48 M/mm3 (4.2-5.4); White Blood Count 10.3 K/mm3 (4.4-11.0)
[2021-11-11 06:49] LABS: Anion Gap 6 (5-15); BUN 27 mg/dL (7-18); BUN/Creat Ratio 25.2 RATIO (10-20); Calcium,Total 8.6 mg/dL (8.5-10.1); Chloride 107 mmol/L (98-107); Creatinine, Serum 1.07 mg/dL (0.55-1.02); EST Glomerular Filtration Rate 53 mL/min (>60); Est Glom Filt Rate - Afr Amer 65 mL/min (>60); Estimated Creatinine Clearance 41.51 ml/min; Glucose 108 mg/dL (74-106); Potassium 3.3 mmol/L (3.5-5.1); Sodium Level 139 mmol/L (136-145); Thyroid Stim Hormone (TSH) 1.85 uIU/mL (0.358-3.74)
[2021-11-11] MEDS: Potassium Chloride Oral Tablet 20 MEQ 40 MEQ PO (08:25)
[2021-11-11 10:27] LABS: Pathologist Review Reviewed
--- NOTE | 2021-11-11 10:34 | NURSING ---
Patient being transported off unit to AC at this time.
[2021-11-11] MEDS: Lactated Ringers 1,000 ML 15 ML IV ×3 (11:20→15:45)
--- NOTE | 2021-11-11 11:48 | ECHOD_ITS ---
Reason For Study: MURMUR Procedure This was a 2D Doppler, Color Flow transthoracic echocardiogram. Exam performed portable in patient room. Left Ventricle Mild concentric left ventricular hypertrophy. The estimated ejection fraction is 55-60 %. Right Ventricle Normal right ventricle. Normal systolic function. Atria The left atrium is mildly enlarged. Mitral Valve There is moderate to severe mitral annular calcification. Mild-Moderate mitral valve stenosis. Mild (1+) mitral valve insufficiency. Tricuspid Valve Normal tricuspid valve. Aortic Valve Aortic valve area 1.9 . Pulmonic Valve The pulmonic valve is not well visualized. Great Vessels Normal aortic root. Pericardium/Pleural No pericardial effusion. MMode/2D Measurements & Calculations LVIDd: 5.4 cm IVSd: 1.2 cm LVOT diam: 2.0 cm LVIDs: 3.4 cm LVPWd: 1.2 cm LVOT area: 3.2 cm2 RVDd: 3.6 cm FS: 36.9 % Ao root diam: 3.0 cm LAV(MOD-bp): 86.8 ml LVAd ap4: 25.8 cm2 LAV(MOD-bp) Indexed: 40.7 ml/m2 LVLd ap4: 6.8 cm LAV(MOD-sp2): 88.5 ml EDV(MOD-sp4): 79.0 ml LAV(MOD-sp4): 72.5 ml EDV(sp4-el): 82.5 ml LVAs ap4: 13.6 cm2 LVLs ap4: 5.8 cm ESV(MOD-sp4): 25.8 ml ESV(sp4-el): 27.1 ml EF(MOD-sp4): 67.4 % EF(sp4-el): 67.2 % SV(MOD-sp4): 53.3 ml SV(sp4-el): 55.4 ml LA A4 area: 22.8 cm2 LA dimension(2D): 4.2 cm Time Measurements MV dec time: 0.31 sec Doppler Measurements & Calculations MV E max abe: 128.0 cm/sec Lat Peak E' Abe: 6.7 cm/sec Med Peak E' Abe: 6.6 cm/sec MV A max abe: 139.7 cm/sec E/E' lat: 19.1 E/E' med: 19.4 MV E/A: 0.92 Ao V2 max: 212.2 cm/sec LV V1 max: 124.6 cm/sec SV(LVOT): 92.4 ml Ao max P.0 mmHg LV V1 max P.2 mmHg Ao V2 mean: 153.3 cm/sec LV V1 mean P.0 mmHg Ao mean P.2 mmHg LV V1 mean: 97.0 cm/sec Ao V2 VTI: 44.3 cm LV V1 VTI: 28.9 cm ROSE MARY(I,D): 2.1 cm2 ROSE MARY(V,D): 1.9 cm2 PA V2 max: 122.7 cm/sec ECHO/Echo Complete Interpretation Summary The estimated ejection fraction is 55-60 %. Normal LV systolic Function Mild Mitral stenosis Mild MR Mild Aortic stenosis No significant changes from prior echo. Aortic valve area 1.9 cm2 Ordering Physician: Mauri Franco Referring Physician: Malena Vargas Performed By: Jessy Cain, JASEN, RVT
--- NOTE | 2021-11-11 11:57 | NURSING ---
Notified Joanna in AC of the new orders from Dr. Franco that came across for ECHO and blood cultures. She states they are getting ready to take patient to surgery. Anesthesia cleared the patient.
--- NOTE | 2021-11-11 12:35 | PCM.PN.ID ---
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 Will order repeat bcx and TTE. Will do full consult 11/14/21, please call with any questions.
[2021-11-11] MEDS: Vancomycin IV 1,000 MG/20 ML Vial OPERA.SITE (14:50)
[2021-11-11] MEDS: Cefazolin 1 GM/5 ML Vial 2 GM OPERA.SITE (14:50)
[2021-11-11] MEDS: TXA in NS 100ml (Placed in Wound) OPERA.SITE (15:08)
--- NOTE | 2021-11-11 15:20 | NURSING ---
Called to PACU and asked if the 1400 Zosyn could be infused while patient is in PACU and they state it will not be given.
--- NOTE | 2021-11-11 15:26 | PCM.OPRPT ---
Report of Operation Date of Procedure: 11/11/21 Pre-Operative Diagnosis: Left knee periprosthetic joint infection Post-Operative Diagnosis: Left knee periprosthetic joint infection Supracondylar distal femur fracture Surgery/Procedure Performed:: Left total knee explant placement of antibiotic spacer Left knee placement of nonbiodegradable antibiotic delivery system Open reduction internal fixation supracondylar distal femur fracture left knee. Description of Surgical Findings:: Antibiotic laden cement dowels were placed in the femoral and tibial canals. Both the femur and tibia were grossly loose. Surgeon: Judson Murphy mortgage loan computation clerk: Paco Hartman Type of Anesthesia: General Anesthesiologist: Diogenes Hastings Special Medications: 2 g Ancef and 2 g vancomycin and gentamicin laden antibiotic cement Specimen's removed: 3 separate specimens were sent to microbiology Drains: Superior lateral portal drain Estimated Blood Loss (mL): 300 Fluids Replaced: 2 L crystalloid Description of Procedure: Implants used: Femur: Size 4 TS femur with 15 mm augments medially and laterally Tibia: Size 4 PS 16mm all polytibia Brief history operative indications: 76-year-old female with history of total knee replacement in 2014. Subsequent infection in 2015. Two-stage revision with replantation in 2016. Presented with increased pain. Aspiration was performed consistent with infection and growing out Staph aureus. As noted in the consultation risks and benefits of the procedure were discussed the patient. Patient had x-ray findings consistent with gross loosening of the implants. At this point we elected to proceed with explant and placement of antibiotic spacer. Procedure: On the date of procedure patient's left lower extremity was marked in the preoperative area. The patient was then taken back to the operating room where the patient was placed on the table in the supine position. All bony prominences were identified a well-padded. Anesthesia assumed control of the C-spine and airway and remained controlled throughout the remainder of the procedure. A tourniquet was placed on the left upper thigh and the leg was prepped in a sterile fashion. The surgeon then scrubbed at this time. Upon reentering the room right lower extremity was draped in a standard orthopedic fashion. A timeout was then called and everyone agreed upon the side, the site, the procedure to be performed, patient's identity and antibiotics given. The left lower extremity was elevated during the timeout and the knee was flexed and the tourniquet was placed up to 250 mmHg with the knee in flexion. A midline skin incision was made using the previous incision and extending it proximally and distally to identify normal tissue planes. Medial and lateral flaps were developed appropriate releases. The standard medial parapatellar arthrotomy with proximal quadricep snip was made and the patella was subluxed laterally. At this time an aggressive synovectomy was performed re-creating the medial gutter first, then the suprapatellar pouch than the lateral gutter. Once this was completed the knee was flexed up an osteotome was used to remove the tibial polyethylene. The remainder of the synovium was debrided. The standard deep MCL release was done and the patella scar pad was resected and lateral releases were performed. Next our attention was directed to the femur. Wear flexible osteotomes and TPS saw were used to break up the implant cement interface. This was done both medially and laterally. After this is adequately lucent bone tamp was used to remove the femur component from the end of the bone. This was done with minimal bone loss. We then needed to remove the cement mantle from the femoral canal. We did this carefully using an osteotome. However we did create a anterior fracture in the femur that was not complete in the supracondylar area. We explored the extent of this. And we elected to cable it after complete debridement and irrigation. After the complete cement mantle was removed, at this time attention was now directed towards the proximal tibia. Possible osteotome and TPS saw were then used to break up the proximal tibia implant interface and stacked osteotomes were used to remove the tibial implant. This was done with minimal bone loss. Our attention was then turned to the tibia where the intramedullary canal was reamed to 16 and extramedullary tibial cutting guide was used to make the appropriate tibial cut 90 degrees from the mechanical axis. A drop jamari was then used to verify the cut. A bur was used to clean up the rest of the synovium in the metaphysis and bur down to healthy bone. A size 4 tibia was selected. the knee was flexed and the tibial component was pinned into place and the Nubitys reamer was used to ream the proximal medullary canal. The trial implant was impacted in its prepared position. Our attention was then turned back to the femur or the femur intramedullary canal was reamed to 21 mm at this point the bur was used to clean up the residual synovium on the bone. Cleanup cut was made we knew we would need a 15 augment medially, and15 augment laterally. Based on the previous femoral implant a size 4 was selected. Our attention was then directed to the patella. The patella button was removed using a saw. The previous pegs and cement were removed using a bur. The patella was then left alone for the antibiotic spacer portion. Final components were verified and opened, 6 liters of normal saline were irrigated throughout the joint under low-pressure lavage. Then the cement was mixed by hand and we made cement dowels which went in the femoral and tibial canals. We then assembled the augments onto the femur. We mixed the antibiotic vancomycin and Ancef in with the cement and cemented the femur into place. Once the cement cured we mixed the third batch of cement for the tibia. The tibia was then cemented into place the knee was placed in extension the largest PS all polytibia was selected and cement was used to augment. All excess cement was removed in the process. Once the final components were placed and the cement had appropriately cured the wound was copiously irrigated with normal saline solution and the remainder of the periarticular injection was given. The wound was closed in a layer hector fashion using #2 FiberWire for the quadriceps snip closure and proximal closure. #1 vicryl interrupted sutures for the remainder of the arthrotomy, 2-0 interrupted Vicryl for the subcuticular layer and charlene for final skin closure. A sterile compressive dressing was then placed. The patient was then awakened from anesthesia, transferred to the [facility] and transferred to the PACU for recovery. Post op plan DVT ppx: Begin Lovenox tomorrow for DVT prophylaxis Follow up: in office in 2 weeks for wound check PT: Patient will be toe-touch weightbearing without any flexion of the knee for the first 2 weeks in a knee immobilizer. Then will begin partial weightbearing and range of motion exercises. 6 weeks of IV antibiotics will be directed by the infectious disease doctor longer if necessary. After this is completed we will plan on reimplanting. If patient has continued infection she may require multiple surgeries for further debridement. My physician operations administrative assistant was a vital part of this case. He was important in appropriate retraction during the case, and protection of soft tissues during bony cuts. His intimate knowledge of the case and my steps aided in safe and expedient completion of the procedure as well as appropriate position of the leg during the case. He was also vital in assisting with closure under my direct supervision.
--- NOTE | 2021-11-11 17:10 | RAD_ITS ---
STUDY: XR Knee 1 or 2 Views 11/11/2021 6:13 PM REASON FOR EXAM: Female, 76 years old. Technologist Notes POST OP LEFT KNEE ITD AND REVISION S/P SEPTIC KNEE post op -- AP and Lateral xray of operative knee in PACU TECHNIQUE: XR Knee 1 or 2 Views COMPARISON: None. FINDINGS: There is no fracture or dislocation. There is anatomic alignment. Total knee arthroplasty. Surgical drain in place. Skin charlene are seen along the anterior midline aspect of the knee. There is an air-fluid level seen in the suprapatellar region. Joint space is preserved. Subcutaneous air is noted. IMPRESSION: Successful total knee arthroplasty. Electronically Signed: Santy Lee MD at 18:14 EST , Service support , RAD/Knee 1 or 2 Views
--- NOTE | 2021-11-11 17:45 | PN.HOSP_ITS ---
Subjective Subjective Patient is currently lying in bed and appears comfortable. Awaiting surgery this afternoon. She denies any pain at rest but does states she has significant pain upon movement. She has been unable to bear weight on that leg. She is familiar with the process as she has had infection previously. Objective Data Objective Data Vital Signs: Vital Signs Temp Pulse Resp BP Pulse Ox 97.4 F L 71 24 H 178/76 H 99 11/11/21 16:52 11/11/21 16:52 11/11/21 16:52 11/11/21 16:52 11/11/21 16:52 Oxygen Flow Rate (L/min) 2 Oxygen Delivery Method Nasal Cannula Weight: 108.4 kg Body Mass Index (BMI) 39.7 Intake & Output: Intake and Output for Last 24 Hours 11/09/21 11/10/21 11/11/21 23:59 23:59 23:59 Intake Total 1540 / 2140 2700 / 2700 Output Total 290 / 290 Balance 1540 / 1890 2410 / 2410 Lab / Micro Data Result Diagrams: 11/11/21 05:40 11/11/21 05:40 Labs: Laboratory Results - last 24 hr 11/10/21 17:23: Fluid Crystals See PATH REV, Fluid Crystal Source SYNOVIAL, Fl Crystal Path Review Reviewed, Synovial Source KNEE, Synovial Color Yellow, Synovial Appearance Turbid, Synovial WBC 183.3500 H, Synovial RBC 0.077 H, Synovial Tot Cell Ct 185.3500 H, Synovial Neutrophils 98 H, Synovial Monocytes 2, Synovial Path Comment May follow 11/11/21 05:40: Sodium 139, Potassium 3.3 L, Chloride 107, Carbon Dioxide 26.0, Anion Gap 6, BUN 27 H, Creatinine 1.07 H, Estim Creat Clear Calc 41.51, Est GFR (MDRD) Af Amer 65, Est GFR (MDRD) Non-Af 53 L, BUN/Creatinine Ratio 25.2 H, Glucose 108 H, Calcium 8.6, TSH 1.85 11/11/21 05:40: WBC 10.3, RBC 3.48 L, Hgb 9.7 L, Hct 30.7 L, MCV 88.2, MCH 27.9, MCHC 31.6 L, RDW Std Deviation 47.1 H, RDW Coeff of Luz Maria 14.6, Plt Count 171, MPV 10.7, Immature Gran % (Auto) 1.100 H, Neut % (Auto) 78.3 H, Lymph % (Auto) 8.0 L , [place] % (Auto) 12.2 H, Eos % (Auto) 0.1, Baso % (Auto) 0.3, Absolute Neuts (auto) 8.1 H, Absolute Lymphs (auto) 0.83, Nucleated RBC % 0 Micro: Microbiology 11/10/21 17:23 Fluid - Synovial (joint) Gram Stain - Final 11/10/21 17:23 Fluid - Synovial (joint) Body Fluid Culture - Preliminary Staphylococcus aureus 11/10/21 11:30 Blood Culture (Wb) - Anticubital Right Blood Culture - Preliminary 11/10/21 11:20 Nasal Secretion SARS-CoV-2 Antigen (Rapid) - Final Radiography Diagnostic Testing: Radiology Impression Femur X-Ray 11/10/21 18:35 IMPRESSION: Total left knee arthroplasty. Suprapatellar effusion. Questionable fracture involving the lateral femoral condyle. Electronically Signed: Santy Lee MD at 19:26 EST , Service support , Physical Exam Const alert and oriented x3 Constitutional Narrative: Obese white female lying in bed, appears comfortable, nontoxic, walks in the room during my exam Exam Limitations: no limitations Nutritional Appearance: obese HEENT head/scalp atraumatic, moist oral mucous membranes and oropharynx normal HEENT Narrative: Dentition is poor, Mallampati is 2-3 Head and Scalp: normocephalic Resp normal respiratory effort, no retractions, no use of accessory muscles and clear to auscultation bilaterally Auscultation: Negative for crackles, rales, rhonchi or wheezes Cardio regular rate, regular rhythm, S1 normal heart sound, S2 normal heart sound, no rub, no gallops, no clicks and no JVD; Negative for no murmurs Cardio Narrative: Out of 6 systolic murmur noted GI normal to inspection, nondistended, normoactive bowel sounds, soft to palpation, non-tender and non-distended Extremity no clubbing, cyanosis or edema Extremity Narrative: Bilateral knees with old TKA incisions that are well- healed, left knee with mild joint effusion and evidence of previous a rthrocentesis on the left lateral aspect of the joint, and not warm to touch but pain with palpation Peripheral Pulses: Yes pulses 2+ throughout Neuro CN's II-XII intact bilaterally, moves all extremities and no focal motor deficits Neuro Narrative: Patient able to move all extremities but left lower extremity limited secondary to pain Sensorium / Orientation: awake and alert Speech: speech normal Assessment & Plan Assessment/Plan (1) Effusion, left knee: (2) Septic joint of left knee joint: (3) Bacteremia: PLAN: Gram-positive 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 -Continue vancomycin/Zosyn -Echocardiogram has already been ordered by infectious disease -May need LOUISE if TTE is negative and patient does not clear cultures -Repeat blood cultures have been ordered -Appreciate ID input Staph aureus left prosthetic joint infection-knee/supracondylar distal femoral fracture -Orthopedics is following -Left total knee explant placement of antibiotic spacer/Left knee placement of nonbiodegradable antibiotic delivery system/Open reduction internal fixation supracondylar distal femur fracture left knee -Continue antibiotics per ID -Continue pain medicine -Arthrocentesis done on admission showing staph aureus and further identification and sensitivities are pending -Bowel regimen Hypertension -Continue hydrochlorothiazide 12.5 mg twice daily -Monitor clinically Chronic normocytic anemia -Anticipate drop in hemoglobin with IV fluids and surgical intervention -Repeat CBC in a.m. -Continue home iron supplementation Hypothyroidism -Continue levothyroxine Hypokalemia -Oral potassium supplement -Repeat in a.m. -If persistently low check magnesium CKD stage IIIa -Serum creatinine is stable -Baseline is 1-1.2 -Monitor -Avoid nephrotoxins as able Depression/anxiety -Continue Seroquel at at bedtime -Continue fluoxetine 20 mg daily -Continue as needed Xanax DVT prophylaxis -Continue Lovenox 40 mg daily CODE STATUS -DNR CCA okay for short-term intubation Charges/Coding Visit Charges Inpatient E&M: 33761 Subs Hosp L2
[2021-11-11] MEDS: Ferrous Sulfate 325 MG Tablet PO (17:55)
[2021-11-11] MEDS: hydroCHLOROthiazide 12.5mg 12.5 MG PO (17:55)
[2021-11-11] MEDS: FLUoxetine 20 MG Capsule PO (17:55)
[2021-11-11] MEDS: ALPRAZolam 0.5 MG Tablet 1 MG PO (23:36)
[2021-11-12] VITALS (7 sets, daily range): BP systolic 136–173; BP diastolic 42–91; PULSE 67–80; RESP 18–20; TEMP 36.8–37.6; O2SAT 93–99
[2021-11-12] MEDS: Acetaminophen 325 MG Tablet 650 MG PO (03:27)
[2021-11-12] MEDS: Levothyroxine 125 MCG Tablet PO (06:34)
[2021-11-12 07:24] LABS: Absolute Lymphocyte Count 0.92 X10^3/uL (0.83-4.51); Absolute Neutrophil Count 9.4 X10^3/uL (2.0-7.7); Basophil# 0.03 X10^3/uL; Basophil% 0.2 % (0-1); Eosinophil# 0.01 X10^3/uL; Eosinophils% 0.1 % (0-5); Hematocrit 26.4 % (37-47); Hemoglobin 8.5 g/dL (12.0-15.0); Lymphocyte # 0.92 X10^3/ul (0.83-4.51); Lymphocyte % 7.6 % (19-41); Mean Corp Hgb Conc 32.2 g/dL (32-36); Mean Corpuscular Hgb 28.6 pg (27.0-32.0); Mean Corpuscular Volume 88.9 fL (81-99); Mean Platelet Vol. 10.3 fl (6.2-12.0); Monocyte# 1.44 X10^3/uL; Monocyte% 11.8 % (0-10); NRBC Flagged by Analyzer 0 % (0-5); Neutrophil % 77.2 % (47-70); Platelet Count 186 K/mm3 (150-450); RBC Distribution Width CV 14.8 % (11.6-14.6); RBC Distribution Width SD 48.1 fl (35.1-43.9); Red Blood Count 2.97 M/mm3 (4.2-5.4); White Blood Count 12.2 K/mm3 (4.4-11.0)
[2021-11-12 07:51] LABS: Anion Gap 6 (5-15); BUN 22 mg/dL (7-18); BUN/Creat Ratio 22.5 RATIO (10-20); Calcium,Total 7.9 mg/dL (8.5-10.1); Chloride 106 mmol/L (98-107); Creatinine, Serum 0.98 mg/dL (0.55-1.02); EST Glomerular Filtration Rate 59 mL/min (>60); Est Glom Filt Rate - Afr Amer 72 mL/min (>60); Estimated Creatinine Clearance 45.32 ml/min; Glucose 181 mg/dL (74-106); Potassium 3.4 mmol/L (3.5-5.1); Sodium Level 137 mmol/L (136-145)
[2021-11-12] MEDS: ALPRAZolam 0.5 MG Tablet 1 MG PO (08:37)
[2021-11-12] MEDS: FLUoxetine 20 MG Capsule PO (08:37)
[2021-11-12] MEDS: Ferrous Sulfate 325 MG Tablet PO (08:37)
[2021-11-12] MEDS: Enoxaparin 40 MG/0.4 ML Syringe SC (08:38)
[2021-11-12] MEDS: hydroCHLOROthiazide 12.5mg 12.5 MG PO (08:38)
[2021-11-12] MEDS: Aspirin 81 MG TAB.CHEW PO (08:38)
--- NOTE | 2021-11-12 09:10 | PN.ORTHO_ITS ---
Subjective Subjective The patient was sitting in bed having echocardiogram performed upon examination. Patient denies any chest pain, shortness of breath, dizziness, lightheadedness, nausea or vomiting, or calf pain. Pain is controlled on medications. No adverse overnight events. Patient was admitted into the hospital yesterday with ongoing left knee pain since Sunday. Patient had aspiration by Dr. Judson Murphy which did reveal staph. Patient also had blood cultures consistent with staph. We are currently waiting on cultures from intraoperatively which are pending. She is currently being followed by infectious disease. She is currently on vancomycin and Zosyn. Objective Data Objective Data Vital Signs: Vital Signs Temp Pulse Resp BP Pulse Ox 98.3 F 67 18 168/58 H 93 11/12/21 08:09 11/12/21 08:09 11/12/21 08:09 11/12/21 08:09 11/12/21 08:09 Oxygen Flow Rate (L/min) 2 Oxygen Delivery Method Room Air Weight: 108.4 kg Body Mass Index (BMI) 39.7 Intake & Output: Intake and Output for Last 24 Hours 11/10/21 11/11/21 11/12/21 23:59 23:59 23:59 Intake Total 1540 / 2140 3297.21 / 3297.21 863.33 / 863.33 Output Total 290 / 750 1160 / 1160 Balance 1540 / 1890 3007.21 / 2547.21 -296.67 / -296.67 Lab / Micro Data Result Diagrams: 11/12/21 07:10 11/12/21 07:10 Labs: Laboratory Results - last 24 hr 11/10/21 17:23: Fluid Crystals See PATH REV, Fluid Crystal Source SYNOVIAL, Fl Crystal Path Review Reviewed, Synovial Source KNEE, Synovial Color Yellow, Synovial Appearance Turbid, Synovial WBC 183.3500 H, Synovial RBC 0.077 H, Syno vial Tot Cell Ct 185.3500 H, Synovial Neutrophils 98 H, Synovial Monocytes 2, Synovial Path Comment May follow 11/12/21 07:10: Sodium 137, Potassium 3.4 L, Chloride 106, Carbon Dioxide 25.0, Anion Gap 6, BUN 22 H, Creatinine 0.98, Estim Creat Clear Calc 45.32, Est GFR (MDRD) Af Amer 72, Est GFR (MDRD) Non-Af 59 L, BUN/Creatinine Ratio 22.5 H, Glucose 181 H, Calcium 7.9 L 11/12/21 07:10: WBC 12.2 H, RBC 2.97 L, Hgb 8.5 L, Hct 26.4 L, MCV 88.9, MCH 28.6, MCHC 32.2, RDW Std Deviation 48.1 H, RDW Coeff of Luz Maria 14.8 H, Plt Count 186, MPV 10.3, Immature Gran % (Auto) 3.100 H, Neut % (Auto) 77.2 H, Lymph % (Auto) 7.6 L, [place] % (Auto) 11.8 H, Eos % (Auto) 0.1, Baso % (Auto) 0.2, Absolute Neuts (auto) 9.4 H, Absolute Lymphs (auto) 0.92, Nucleated RBC % 0 Micro: Microbiology 11/10/21 11:30 Blood Culture (Wb) - Anticubital Right Blood Culture - Preliminary Staphylococcus aureus 11/10/21 17:23 Fluid - Synovial (joint) Gram Stain - Final 11/10/21 17:23 Fluid - Synovial (joint) Body Fluid Culture - Preliminary Staphylococcus aureus 11/10/21 11:20 Nasal Secretion SARS-CoV-2 Antigen (Rapid) - Final Radiography Diagnostic Testing: Radiology Impression Knee X-Ray 11/11/21 17:10 Physical Exam Narrative Vital signs stable and afebrile. Patient is able to plantarflex and dorsiflex actively. Sensation is intact to light touch to saphenous, sural, superficial and deep peroneal, and tibial distribution. Dressing is clean dry and intact. Negative Homans bilaterally, negative signs and symptoms of DVT. Hemovac drain in place with minimal output. 40 cc have been drained over the past 1 day Const alert, oriented x3 and no apparent distress Assessment & Plan Assessment/Plan (1) Septic joint of left knee joint: PLAN: 1. S/P left knee explant with placement of antibiotic spacer POD #1 2. Continue Pain Medications: Tylenol and oxycodone as needed. Patient's pain has been well controlled. 3. DVT Prophylaxis: Lovenox. Patient denies previous history of any DVT 4. PT/OT: Patient will be toe-touch weightbearing without any flexion of the knee for the first 2 weeks in the knee immobilizer. After 2 weeks we will begin partial weightbearing and range of motion exercises. 5. H & H: 8.5/26.4, asymptomatic. Postoperative anemia secondary to acute blood loss from surgery without any intra operative complications. Patient is currently asymptomatic. We will continue to monitor 6. Encouraged Incentive Spirometry 7. Consult infectious disease: Patient's cultures are currently pending. She did have aspiration which did reveal Staph aureus preoperatively. She also had blood culture consistent with Staph aureus. Appreciate recommendations for antibiotics from infectious disease. Currently on vancomycin and Zosyn. Patient will require PICC line and IV antibiotics for 6 weeks at minimum. 8. Continue Hemovac drain: Plan will be for Hemovac drain for at least 48 hours. There has been 40 cc of output since surgery. 9. Disposition: Orthopedically stable at this time. We will continue to monitor patient's lab work and cultures. Appreciate input from infectious disease with regards to antibiotics. Patient will require PICC line for IV antibiotics. Continue restrictions for physical therapy as listed above. Continue pain medications and DVT prophylaxis per primary service. Patient will require prior to discharge from the hospital 2-week follow-up appointment with [facility] for staple removal and incision check. At that time plan to increase weightbearing status and begin gentle range of motion. For the first 2 weeks no range of motion of the knee and continue with the knee immobilizer. Continue with toe-touch weightbearing with walker.
--- NOTE | 2021-11-12 14:46 | PN.HOSP_ITS ---
Subjective Subjective Patient states that her pain is overall better today. She is willing to go somewhere for rehab if need be however she was able to handle IV antibiotics at home previously. She has no current complaints. She states she is moving her bowels and passing gas without difficulty. Objective Data Objective Data Vital Signs: Vital Signs Temp Pulse Resp BP Pulse Ox 98.8 F 73 18 170/59 H 99 11/12/21 14:25 11/12/21 14:25 11/12/21 14:25 11/12/21 14:25 11/12/21 14:25 Oxygen Flow Rate (L/min) 2 Oxygen Delivery Method Room Air Weight: 108.4 kg Body Mass Index (BMI) 39.7 Intake & Output: Intake and Output for Last 24 Hours 11/10/21 11/11/21 11/12/21 23:59 23:59 23:59 Intake Total 1540 / 2140 3297.21 / 3297.21 913.33 / 913.33 Output Total 290 / 750 1160 / 1160 Balance 1540 / 1890 3007.21 / 2547.21 -246.67 / -246.67 Lab / Micro Data Result Diagrams: 11/12/21 07:10 11/12/21 07:10 Labs: Laboratory Results - last 24 hr 11/12/21 07:10: Sodium 137, Potassium 3.4 L, Chloride 106, Carbon Dioxide 25.0, Anion Gap 6, BUN 22 H, Creatinine 0.98, Estim Creat Clear Calc 45.32, Est GFR (MDRD) Af Amer 72, Est GFR (MDRD) Non-Af 59 L, BUN/Creatinine Ratio 22.5 H, Glucose 181 H, Calcium 7.9 L 11/12/21 07:10: WBC 12.2 H, RBC 2.97 L, Hgb 8.5 L, Hct 26.4 L, MCV 88.9, MCH 28.6, MCHC 32.2, RDW Std Deviation 48.1 H, RDW Coeff of Luz Maria 14.8 H, Plt Count 186, MPV 10.3, Immature Gran % (Auto) 3.100 H, Neut % (Auto) 77.2 H, Lymph % (Auto) 7.6 L, [place] % (Auto) 11.8 H, Eos % (Auto) 0.1, Baso % (Auto) 0.2, A bsolute Neuts (auto) 9.4 H, Absolute Lymphs (auto) 0.92, Nucleated RBC % 0 Micro: Microbiology 11/11/21 Unknown Tissue - Knee Gram Stain - Final 11/11/21 Unknown Tissue - Knee Wound Culture - Preliminary Staphylococcus aureus 11/11/21 Unknown Tissue - Knee Gram Stain - Final 11/11/21 Unknown Tissue - Knee Wound Culture - Preliminary Staphylococcus aureus 11/11/21 Unknown Tissue - Knee Gram Stain - Final 11/11/21 Unknown Tissue - Knee Wound Culture - Preliminary Staphylococcus aureus 11/10/21 15:10 Urine, Clean Catch Urine Culture - Final Mixed Gram Positive Organisms 11/10/21 17:23 Fluid - Synovial (joint) Gram Stain - Final 11/10/21 17:23 Fluid - Synovial (joint) Body Fluid Culture - Final Staphylococcus aureus 11/10/21 11:30 Blood Culture (Wb) - Anticubital Right Blood Culture - Preliminary Staphylococcus aureus 11/10/21 11:20 Nasal Secretion SARS-CoV-2 Antigen (Rapid) - Final Radiography Diagnostic Testing: Radiology Impression Echocardiogram 11/11/21 11:48 Interpretation Summary The estimated ejection fraction is 55-60 %. Normal LV systolic Function Mild Mitral stenosis Mild MR Mild Aortic stenosis No significant changes from prior echo. Aortic valve area 1.9 cm2 Ordering Physician: Mauri Franco Referring Physician: Malena Vargas Performed By: Jessy Cain, JASEN, RVT Knee X-Ray 11/11/21 17:10 Physical Exam Const alert and oriented x3 Constitutional Narrative: Obese white female lying in bed, appears comfortable, nontoxic, is at the bedside General Appearance: cooperative Exam Limitations: no limitations Nutritional Appearance: obese HEENT normocephalic, head/scalp atraumatic, moist oral mucous membranes and oropharynx normal Head and Scalp: normocephalic Resp normal respiratory effort, no retractions, no use of accessory muscles and clear to auscultation bilaterally Auscultation: Negative for crackles, rales, rhonchi or wheezes Cardio regular rate, regular rhythm, S1 normal heart sound, S2 normal heart sound, no rub, no gallops, no clicks and no JVD; Negative for no murmurs Cardio Narrative: Out of 6 systolic murmur noted GI normal to inspection, nondistended, normoactive bowel sounds, soft to palpation, non-tender and non-distended Extremity normal to inspection and no clubbing, cyanosis or edema Extremity Narrative: Left lower extremity with postoperative dressing in place, bilateral lower extremities with DELROY hose in place, polar ice on left lower extremity at the knee, drain in place with serosanguineous drainage Peripheral Pulses: Yes pulses 2+ throughout Neuro CN's II-XII intact bilaterally, moves all extremities and no focal motor deficits Neuro Narrative: Patient able to move all extremities but left lower extremity limited secondary to pain Sensorium / Orientation: awake and alert Speech: speech normal Assessment & Plan Assessment/Plan (1) Effusion, left knee: (2) Septic joint of left knee joint: (3) Bacteremia: PLAN: Gram-positive 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 -Continue vancomycin/Zosyn -May be able to narrow tomorrow if growth is finalized -Patient does have cardiac murmur -Echocardiogram shows an EF of 55 to 60% with mild mitral valve stenosis/mild MR , mild aortic stenosis and no changes from previous echocardiogram -May need LOUISE if TTE is negative and patient does not clear cultures -Repeat blood cultures are pending at this time -Appreciate ID input Staph aureus left prosthetic joint infection-knee/supracondylar distal femoral f racture -Orthopedics is following -Left total knee explant placement of antibiotic spacer/Left knee placement of nonbiodegradable antibiotic delivery system/Open reduction internal fixation supracondylar distal femur fracture left knee -Continue antibiotics per ID -Continue pain medicine -Arthrocentesis done on admission showing staph aureus and further identification and sensitivities are pending -Bowel regimen Hypokalemia -40 mEq p.o. potassium -Repeat in a.m. -Check a.m. magnesium Hypertension -Continue hydrochlorothiazide 12.5 mg twice daily -Monitor clinically Chronic normocytic anemia -Anticipate drop in hemoglobin with IV fluids and surgical intervention -No obvious signs of bleeding and hemoglobin appears to be stabilizing -Repeat CBC in a.m. -Continue home iron supplementation Hypothyroidism -Continue levothyroxine CKD stage IIIa -Serum creatinine is stable and at baseline -Baseline is 1-1.2 -Monitor -Avoid nephrotoxins as able Depression/anxiety -Continue Seroquel at at bedtime -Continue fluoxetine 20 mg daily -Continue as needed Xanax DVT prophylaxis -Continue Lovenox 40 mg daily CODE STATUS -DNR CCA okay for short-term intubation Charges/Coding Visit Charges Inpatient E&M: 59000 Subs Hosp L2
[2021-11-12] MEDS: Potassium Chloride Oral Tablet 20 MEQ 40 MEQ PO (16:00)
[2021-11-12] MEDS: ALPRAZolam 0.5 MG Tablet PO (19:54)
[2021-11-12 20:12] LABS: Vancomycin, Trough Level 8.8 ug/mL (5.0-15.0)
--- NOTE | 2021-11-12 22:02 | PCM.RX.CS ---
Consult Pharmacy has been consulted to manage selected antiobiotic: Vancomycin Type of Consult: Follow-up Suspected Infection: Bacteremia Prior Doses of Antibiotics Received/Current Regimen: Medications Vancomycin HCl (Vancomycin) 1,000 mg in 200 mls @ 200 mls/hr IV Q12H JULISSA Vancomycin HCl 1,500 mg/ (Sodium Chloride) 530 mls @ 250 mls/hr IV Q24H JULISSA Stop: 11/12/21 23:00 Last Admin: 11/12/21 19:53 Dose: 250 mls/hr Labs: Sodium 137 mmol/L (136-145) 11/12/21 07:10 Potassium 3.4 mmol/L (3.5-5.1) L 11/12/21 07:10 Chloride 106 mmol/L (98-107) 11/12/21 07:10 Carbon Dioxide 25.0 mmol/L (21.0-32.0) 11/12/21 07:10 Anion Gap 6 (5-15) 11/12/21 07:10 BUN 22 mg/dL (7-18) H 11/12/21 07:10 Creatinine 0.98 mg/dL (0.55-1.02) 11/12/21 07:10 Est GFR (MDRD) Af Amer 72 mL/min (>60) 11/12/21 07:10 Est GFR (MDRD) Non-Af 59 mL/min (>60) L 11/12/21 07:10 BUN/Creatinine Ratio 22.5 RATIO (10-20) H 11/12/21 07:10 Glucose 181 mg/dL (74-106) H 11/12/21 07:10 Vancomycin Trough 8.8 ug/mL (5.0-15.0) 11/12/21 19:37 Microbiology: Microbiology 11/11/21 Unknown Tissue - Knee Gram Stain - Final 11/11/21 Unknown Tissue - Knee Wound Culture - Preliminary Staphylococcus aureus 11/11/21 Unknown Tissue - Knee Gram Stain - Final 11/11/21 Unknown Tissue - Knee Wound Culture - Preliminary Staphylococcus aureus 11/11/21 Unknown Tissue - Knee Gram Stain - Final 11/11/21 Unknown Tissue - Knee Wound Culture - Preliminary Staphylococcus aureus 11/10/21 15:10 Urine, Clean Catch Urine Culture - Final Mixed Gram Positive Organisms 11/10/21 17:23 Fluid - Synovial (joint) Gram Stain - Final 11/10/21 17:23 Fluid - Synovial (joint) Body Fluid Culture - Final Staphylococcus aureus 11/10/21 11:30 Blood Culture (Wb) - Anticubital Right Blood Culture - Preliminary Staphylococcus aureus 11/10/21 11:20 Nasal Secretion SARS-CoV-2 Antigen (Rapid) - Final Weight used for dosin kg Estimated Creatinine Clearance: 45 Goal Trough: 15-20 mcg/mL Pharmacy Plan for Drug Dosing: Vancomycin trough level was 8.8, drawn 24h after dose. This was below target range of 15-20. Renal clearance has obviously been improving. Vancomycin dosing calculator estimated an expected trough of 16.6 with an increase to 1000mg q12h. Another trough will be drawn prior to fourth dose of this new regimen. Pharmacy Service will continue to monitor and adjust dosing as required. Follow-Up Labs: Trough Vancomycin Labs to be done on [date and time ordered]: 11/14/21 @9215
[2021-11-12] MEDS: QUEtiapine 25 MG Tablet 75 MG PO (22:21)
[2021-11-13] VITALS (8 sets, daily range): BP systolic 134–177; BP diastolic 48–65; PULSE 68–83; RESP 18; TEMP 36.7–37.5; O2SAT 93–98
[2021-11-13] MEDS: 0.9% Saline Lock 10 ML Syringe IV ×3 (05:25→17:14)
[2021-11-13] MEDS: Levothyroxine 125 MCG Tablet PO (05:26)
[2021-11-13 05:39] LABS: Hematocrit 25.8 % (37-47); Hemoglobin 8.1 g/dL (12.0-15.0); Mean Corp Hgb Conc 31.4 g/dL (32-36); Mean Corpuscular Hgb 27.8 pg (27.0-32.0); Mean Corpuscular Volume 88.7 fL (81-99); Mean Platelet Vol. 10.3 fl (6.2-12.0); POSITIVE COUNT YES; POSITIVE MORPHOLOGY YES; Platelet Count 206 K/mm3 (150-450); RBC Distribution Width CV 14.8 % (11.6-14.6); RBC Distribution Width SD 47.8 fl (35.1-43.9); Red Blood Count 2.91 M/mm3 (4.2-5.4); White Blood Count 11.5 K/mm3 (4.4-11.0)
[2021-11-13 06:21] LABS: Differential Indicated MANUAL DIFF
[2021-11-13 06:25] LABS: Anion Gap 7 (5-15); BUN 18 mg/dL (7-18); Chloride 107 mmol/L (98-107); Creatinine, Serum 0.95 mg/dL (0.55-1.02); EST Glomerular Filtration Rate 61 mL/min (>60); Est Glom Filt Rate - Afr Amer 74 mL/min (>60); Estimated Creatinine Clearance 46.75 ml/min; Glucose 118 mg/dL (74-106); Magnesium 2.2 mg/dL (1.6-2.6); Potassium 3.6 mmol/L (3.5-5.1); Sodium Level 140 mmol/L (136-145)
[2021-11-13 06:55] LABS: Lymphocyte 9 % (19-41); Metamyelocyte 2 % (0-1); Monocyte 8 % (0-10); Myelocyte 1 % (0-0); Neutrophil-Band 2 % (0-5); Neutrophil-Segmented 78 % (47-70); Total Cells Counted 100 (MANUAL DIFF)
[2021-11-13 06:56] LABS: Neutrophil # 9.51 X10^3/uL (2.7-7.7)
[2021-11-13 06:57] LABS: Absolute Lymphocyte Count 1.03 X10^3/uL (0.83-4.51); Absolute Neutrophil Count 9.5 X10^3/uL (2.0-7.7); Lymphocyte # 1.03 X10^3/ul (0.83-4.51); Toxic Granulation 1+
[2021-11-13 06:58] LABS: Platelet Estimate ADEQUATE (ADEQ); Red Cell Morphology NORM C+C NORMAL (NORM C&C)
[2021-11-13] MEDS: Aspirin 81 MG TAB.CHEW PO (07:29)
[2021-11-13] MEDS: Vancomycin IV 1,000 MG/200 ML BAG 200 MG IV (07:29)
[2021-11-13] MEDS: hydroCHLOROthiazide 12.5mg 12.5 MG PO (08:02)
[2021-11-13] MEDS: FLUoxetine 20 MG Capsule PO (09:51)
[2021-11-13] MEDS: Enoxaparin 40 MG/0.4 ML Syringe SC (09:51)
--- NOTE | 2021-11-13 10:53 | PN.HOSP_ITS ---
Subjective Subjective Patient states she is feeling well and not really having any pain. She states she is not really required any as needed pain medication yet today. Appetite is good. Patient states she is moving bowels without issue. Patient would like to go home with IV antibiotic therapy and home care if possible. Objective Data Objective Data Vital Signs: Vital Signs Temp Pulse Resp BP Pulse Ox 99.0 F 68 18 165/65 H 93 11/13/21 07:57 11/13/21 07:57 11/13/21 07:57 11/13/21 07:57 11/13/21 07:57 Oxygen Flow Rate (L/min) 2 Oxygen Delivery Method Room Air Weight: 108.4 kg Body Mass Index (BMI) 39.7 Intake & Output: Intake and Output for Last 24 Hours 11/11/21 11/12/21 11/13/21 23:59 23:59 23:59 Intake Total 3297.21 / 3297.21 2216.83 / 2216.83 547.25 / 547.25 Output Total 290 / 750 1160 / 1160 2 / 2 Balance 3007.21 / 2547.21 1056.83 / 1056.83 545.25 / 545.25 Lab / Micro Data Result Diagrams: 11/13/21 05:25 11/13/21 05:25 Labs: Laboratory Results - last 24 hr 11/12/21 19:37: Vancomycin Trough 8.8 11/13/21 05:25: Sodium 140, Potassium 3.6, Chloride 107, Carbon Dioxide 26.0, Anion Gap 7, BUN 18, Creatinine 0.95, Estim Creat Clear Calc 46.75, Est GFR (MDRD) Af Amer 74, Est GFR (MDRD) Non-Af 61, BUN/Creatinine Ratio 19.0, Glucose 118 H, Calcium 8.0 L, Magnesium 2.2 11/13/21 05:25: WBC 11.5 H, RBC 2.91 L, Hgb 8.1 L, Hct 25.8 L, MCV 88.7, MCH 27.8, MCHC 31.4 L, RDW Std Deviation 47.8 H, RDW Coeff of Luz Maria 14.8 H, Plt Count 206, MPV 10.3, Neut % (Auto) Not Reportable, Absolute Neuts (auto) 9.5 H, Absolute Lymphs (auto) 1.03, Total Counted 100, Neutrophils % (Manual) 78 H, Band Neutrophils % 2, Lymphocytes % (Manual) 9 L, Monocytes % (Manual) 8, Metamyelocytes % 2 H, Myelocytes % 1 H, Diff Path Review May foll, Toxic G ranulation 1+, Platelet Estimate ADEQUATE, RBC Morphology NORM C+C Micro: Microbiology 11/10/21 17:23 Fluid - Synovial (joint) Gram Stain - Final 11/10/21 17:23 Fluid - Synovial (joint) Body Fluid Culture - Final Staphylococcus aureus 11/10/21 17:23 Fluid - Synovial (joint) Anaerobic Culture - Preliminary 11/12/21 13:00 Blood Culture (Wb) - Venous Blood Culture - Preliminary 11/11/21 Unknown Tissue - Knee Gram Stain - Final 11/11/21 Unknown Tissue - Knee Wound Culture - Final Staphylococcus aureus 11/11/21 Unknown Tissue - Knee Gram Stain - Final 11/11/21 Unknown Tissue - Knee Wound Culture - Final Staphylococcus aureus 11/11/21 Unknown Tissue - Knee Gram Stain - Final 11/11/21 Unknown Tissue - Knee Wound Culture - Final Staphylococcus aureus 11/10/21 11:30 Blood Culture (Wb) - Anticubital Right Blood Culture - Preliminary Staphylococcus aureus 11/11/21 05:40 Blood Culture (Wb) - Right Hand Blood Culture - Preliminary No growth in 48 hours. 11/10/21 15:10 Urine, Clean Catch Urine Culture - Final Mixed Gram Positive Organisms 11/10/21 11:20 Nasal Secretion SARS-CoV-2 Antigen (Rapid) - Final Radiography Diagnostic Testing: Radiology Impression Echocardiogram 11/11/21 11:48 Interpretation Summary The estimated ejection fraction is 55-60 %. Normal LV systolic Function Mild Mitral stenosis Mild MR Mild Aortic stenosis No significant changes from prior echo. Aortic valve area 1.9 cm2 Ordering Physician: Mauri Franco Referring Physician: Malena Vargas Performed By: Jessy Cain, RDCS, RVT Physical Exam Const alert and oriented x3 Constitutional Narrative: Obese white female lying in bed, appears comfortable, nontoxic, sitting up in bed finishing up breakfast General Appearance: cooperative Exam Limitations: no limitations Nutritional Appearance: obese HEENT normocephalic, head/scalp atraumatic, moist oral mucous membranes and oropharynx normal HEENT Narrative: No thrush, Mallampati 3 Head and Scalp: normocephalic Resp normal respiratory effort, no retractions, no use of accessory muscles and clear to auscultation bilaterally Auscultation: Negative for crackles, rales, rhonchi or wheezes Cardio regular rate, regular rhythm, S1 normal heart sound, S2 normal heart sound, no rub, no gallops, no clicks and no JVD; Negative for no murmurs Cardio Narrative: 3/6 systolic murmur noted GI normal to inspection, nondistended, normoactive bowel sounds, soft to palpation, non-tender and non-distended Extremity normal to inspection Extremity Narrative: Left lower extremity with postoperative dressing in place, bilateral lower extremities with DELROY hose in place, polar ice on left lower extremity at the knee, immobilizer in place, drain in place with serosanguineous drainage, cap refill is 2+ bilateral lower extremities, slight left lower extremity edema at the foot, no cyanosis or clubbing Peripheral Pulses: Yes pulses 2+ throughout Neuro moves all extremities and no focal motor deficits Neuro Narrative: Patient able to move all extremities but left lower extremity limited secondary to pain Sensorium / Orientation: awake and alert Speech: speech normal Assessment & Plan Assessment/Plan (1) Effusion, left knee: (2) Septic joint of left knee joint: (3) Bacteremia: PLAN: MSSA 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 -All cultures are showing MSSA -Continue vancomycin and continue Zosyn for now -Will defer further antibiotic narrowing to infectious disease -Patient has not yet cleared her cultures and most recent culture from 11/12/2021 is positive for gram-positive cocci in clusters -Repeat blood culture ordered today -Patient does have cardiac murmur -Echocardiogram shows an EF of 55 to 60% with mild mitral valve stenosis/mild MR, mild aortic stenosis and no changes from previous echocardiogram -May need LOUISE if TTE is negative and patient does not clear cultures -Appreciate ID input Staph aureus left prosthetic joint infection-knee/supracondylar distal femoral fracture -Orthopedics is following -Left total knee explant placement of antibiotic spacer/Left knee placement of nonbiodegradable antibiotic delivery system/Open reduction internal fixation supracondylar distal femur fracture left knee -Continue antibiotics per ID -Continue pain medicine -Arthrocentesis done on admission showing staph aureus and further identification and sensitivities are pending -Bowel regimen Hypokalemia - resolved Hypertension -Blood pressures are consistently elevated beyond goals -We will add low-dose Norvasc at 5 mg -Increase HCTZ from 12.5 to 25 mg daily -Tinea to monitor pressures Chronic normocytic anemia -Anticipate drop in hemoglobin with IV fluids and surgical intervention -Hemoglobin is relatively stable in the last 24 hours -Repeat CBC in a.m. -Continue home iron supplementation Hypothyroidism -Continue levothyroxine CKD stage IIIa -Serum creatinine is stable and at baseline -Baseline is 1-1.2 -Monitor -Avoid nephrotoxins as able Depression/anxiety -Continue Seroquel at at bedtime -Continue fluoxetine 20 mg daily -Continue as needed Xanax DVT prophylaxis -Continue Lovenox 40 mg daily CODE STATUS -DNR CCA okay for short-term intubation Charges/Coding Visit Charges Inpatient E&M: 86353 Subs Hosp L2
--- NOTE | 2021-11-13 10:56 | PN.ORTHO_ITS ---
Subjective Subjective 76-year-old female 2 days status post irrigation debridement explant and placement of antibiotic spacer from previous revision total replacement periprosthetic joint infection. With gross implant loosening. Overall patient is doing well. She is having minimal pain. She reports not having taken any pain medications today. Swelling is improved. No chest pain or shortness of breath. Drain was clotted today.Echo was performed yesterday. Still waiting final ID consult however ID is directing antibiotics remotely. She has been placed on Zosyn at this time vancomycin was discontinued. Objective Data Objective Data Vital Signs: Vital Signs Temp Pulse Resp BP Pulse Ox 99.0 F 68 18 165/65 H 93 11/13/21 07:57 11/13/21 07:57 11/13/21 07:57 11/13/21 07:57 11/13/21 07:57 Oxygen Flow Rate (L/min) 2 Oxygen Delivery Method Room Air Weight: 238 lb 15.697 oz Body Mass Index (BMI) 39.7 Intake & Output: Intake and Output for Last 24 Hours 11/11/21 11/12/21 11/13/21 23:59 23:59 23:59 Intake Total 3297.21 / 3297.21 2216.83 / 2216.83 547.25 / 547.25 Output Total 290 / 750 1160 / 1160 2 / 2 Balance 3007.21 / 2547.21 1056.83 / 1056.83 545.25 / 545.25 Lab / Micro Data Result Diagrams: 11/13/21 05:25 11/13/21 05:25 Labs: Laboratory Results - last 24 hr 11/12/21 19:37: Vancomycin Trough 8.8 11/13/21 05:25: Sodium 140, Potassium 3.6, Chloride 107, Carbon Dioxide 26.0, Anion Gap 7, BUN 18, Creatinine 0.95, Estim Creat Clear Calc 46.75, Est GFR (MDRD) Af Amer 74, Est GFR (MDRD) Non-Af 61, BUN/Creatinine Ratio 19.0, Glucose 118 H, Calcium 8.0 L, Magnesium 2.2 11/13/21 05:25: WBC 11.5 H, RBC 2.91 L, Hgb 8.1 L, Hct 25.8 L, MCV 88.7, MCH 27.8, MCHC 31.4 L, RDW Std Deviation 47.8 H, RDW Coeff of Luz Maria 14.8 H, Plt Count 206, MPV 10.3, Neut % (Auto) Not Reportable, Absolute Neuts (auto) 9.5 H, Absolute Lymphs (auto) 1.03, Total Counted 100, Neutrophils % (Manual) 78 H, Band Neutrophils % 2, Lymphocytes % (Manual) 9 L, Monocytes % (Manual) 8, Metamyelocytes % 2 H, Myelocytes % 1 H, Diff Path Review May foll, Toxic Granulation 1+, Platelet Estimate ADEQUATE, RBC Morphology NORM C+C Micro: Microbiology 11/10/21 17:23 Fluid - Synovial (joint) Gram Stain - Final 11/10/21 17:23 Fluid - Synovial (joint) Body Fluid Culture - Final Staphylococcus aureus 11/10/21 17:23 Fluid - Synovial (joint) Anaerobic Culture - Preliminary 11/12/21 13:00 Blood Culture (Wb) - Venous Blood Culture - Preliminary 11/11/21 Unknown Tissue - Knee Gram Stain - Final 11/11/21 Unknown Tissue - Knee Wound Culture - Final Staphylococcus aureus 11/11/21 Unknown Tissue - Knee Gram Stain - Final 11/11/21 Unknown Tissue - Knee Wound Culture - Final Staphylococcus aureus 11/11/21 Unknown Tissue - Knee Gram Stain - Final 11/11/21 Unknown Tissue - Knee Wound Culture - Final Staphylococcus aureus 11/10/21 11:30 Blood Culture (Wb) - Anticubital Right Blood Culture - Preliminary Staphylococcus aureus 11/11/21 05:40 Blood Culture (Wb) - Right Hand Blood Culture - Preliminary No growth in 48 hours. 11/10/21 15:10 Urine, Clean Catch Urine Culture - Final Mixed Gram Positive Organisms 11/10/21 11:20 Nasal Secretion SARS-CoV-2 Antigen (Rapid) - Final Radiography Diagnostic Testing: Radiology Impression Echocardiogram 11/11/21 11:48 Interpretation Summary The estimated ejection fraction is 55-60 %. Normal LV systolic Function Mild Mitral stenosis Mild MR Mild Aortic stenosis No significant changes from prior echo. Aortic valve area 1.9 cm2 Ordering Physician: Mauri Franco Referring Physician: Malena Vargas Performed By: Jessy Cain, RDCS, RVT Physical Exam Const alert, oriented x3 and no apparent distress Extremity Extremity Narrative: Left lower extremity: Dressing is clean dry and intact Sensations intact to light touch saphenous, sural, superficial peroneal, deep peroneal, and tibial distributions Motors intact EHL, DF, PF calves are soft and supple Drain was pulled copious amounts of dark bloody fluid was expressed. Once we had milked all this a dry sterile dressing was placed. Assessment & Plan Assessment/Plan (1) Septic joint of left knee joint: PLAN: PLAN: 1. S/P left knee explant with placement of antibiotic spacer POD #2 2. Continue Pain Medications: Tylenol and oxycodone as needed. Patient's pain has been well controlled. 3. DVT Prophylaxis: Lovenox. Patient denies previous history of any DVT 4. PT/OT: Patient will be toe-touch weightbearing without any flexion of the k nee for the first 2 weeks in the knee immobilizer. After 2 weeks we will begin partial weightbearing and range of motion exercises. 5. H & H: 8.11/29.8, asymptomatic. Postoperative anemia secondary to acute blood loss from surgery without any intra operative complications. Patient is currently asymptomatic. We will continue to monitor Transfusion per primary service. 6. Encouraged Incentive Spirometry 7. Consult infectious disease: Patient's cultures are Growing out MSSA. She did have aspiration which did reveal Staph aureus preoperatively. She also had blood culture consistent with Staph aureus. Appreciate recommendations for antibiotics from infectious disease. Currently on Zosyn. Patient will require PICC line and IV antibiotics for 6 weeks at minimum. 8. Continue Hemovac drain: Hemovac drain was pulled today dry sterile dressing was placed. 9. Disposition: Orthopedically stable at this time. We will continue to monitor patient's lab work and cultures. Appreciate input from infectious disease with regards to antibiotics. Patient will require PICC line for IV antibiotics. Continue restrictions for physical therapy as listed above. Continue pain medications and DVT prophylaxis per primary service. Patient will require prior to discharge from the hospital 2-week follow-up appointment with [facility] for staple removal and incision check. At that time plan to increase weightbearing status and begin gentle range of motion. For the first 2 weeks no range of motion of the knee and continue with the knee immobilizer. Continue with toe-touch weightbearing with walker.
[2021-11-13] MEDS: amLODIPine 5 MG Tablet PO (11:56)
[2021-11-13] MEDS: Ferrous Sulfate 325 MG Tablet PO (12:05)
[2021-11-13] MEDS: Acetaminophen 325 MG Tablet 650 MG PO ×2 (13:47→20:58)
[2021-11-13] MEDS: ALPRAZolam 0.5 MG Tablet PO ×2 (13:47→20:58)
[2021-11-13] MEDS: hydrALAZINE 20 MG/ML Vial 5 MG IV (17:14)
[2021-11-13] MEDS: QUEtiapine 25 MG Tablet 75 MG PO (21:36)
[2021-11-14 03:50] VITALS: BP 137/50; PULSE 79; RESP 16; TEMP 37.1; O2SAT 94
[2021-11-14] MEDS: 0.9% Saline Lock 10 ML Syringe IV (04:02)
[2021-11-14 06:04] LABS: Hematocrit 25.3 % (37-47); Mean Corp Hgb Conc 31.6 g/dL (32-36); Mean Corpuscular Hgb 28.2 pg (27.0-32.0); Mean Corpuscular Volume 89.1 fL (81-99); Mean Platelet Vol. 10.2 fl (6.2-12.0); POSITIVE COUNT YES; POSITIVE MORPHOLOGY YES; Platelet Count 237 K/mm3 (150-450); RBC Distribution Width CV 15.2 % (11.6-14.6); RBC Distribution Width SD 49.5 fl (35.1-43.9); Red Blood Count 2.84 M/mm3 (4.2-5.4); White Blood Count 9.8 K/mm3 (4.4-11.0)
[2021-11-14] MEDS: Levothyroxine 125 MCG Tablet PO (06:04)
[2021-11-14 06:07] LABS: Differential Indicated MANUAL DIFF
[2021-11-14 06:28] LABS: Anion Gap 7 (5-15); BUN 19 mg/dL (7-18); BUN/Creat Ratio 21.3 RATIO (10-20); Calcium,Total 8.2 mg/dL (8.5-10.1); Chloride 106 mmol/L (98-107); Creatinine, Serum 0.89 mg/dL (0.55-1.02); EST Glomerular Filtration Rate 66 mL/min (>60); Est Glom Filt Rate - Afr Amer 80 mL/min (>60); Glucose 97 mg/dL (74-106); Potassium 3.5 mmol/L (3.5-5.1); Sodium Level 141 mmol/L (136-145)
[2021-11-14 06:42] LABS: Absolute Neutrophil Count 6.9 X10^3/uL (2.0-7.7)
[2021-11-14 06:43] LABS: Absolute Lymphocyte Count 1.08 X10^3/uL (0.83-4.51); Anisocytosis 1+; Eosinophil 1 % (0-5); Lymphocyte 11 % (19-41); Metamyelocyte 2 % (0-1); Monocyte 2 % (0-10); Myelocyte 9 % (0-0); NRBC Flagged by Analyzer 1 % (0-5); Neutrophil-Band 13 % (0-5); Neutrophil-Segmented 58 % (47-70); Platelet Estimate ADEQUATE (ADEQ); Promyelocyte 4 % (0-0); Red Cell Morphology NORM C+C NORMAL (NORM C&C); Total Cells Counted 100 (MANUAL DIFF)
--- NOTE | 2021-11-14 09:32 | PCM.PN.HOSP ---
Subjective Subjective Patient is a 76-year-old with left knee soreness and swelling. Diagnosed with Left prosthetic knee joint infection. Objective Data Objective Data Vital Signs: Vital Signs Temp Pulse Resp BP Pulse Ox 98.8 F 79 16 137/50 H 94 11/14/21 03:50 11/14/21 03:50 11/14/21 03:50 11/14/21 03:50 11/14/21 03:50 Oxygen Flow Rate (L/min) 2 Oxygen Delivery Method Room Air Weight: 108.4 kg Body Mass Index (BMI) 39.7 Intake & Output: Intake and Output for Last 24 Hours 11/12/21 11/13/21 11/14/21 23:59 23:59 23:59 Intake Total 2216.83 / 2216.83 1457.25 / 1457.25 648.75 / 648.75 Output Total 1160 / 1160 2 / 2 Balance 1056.83 / 1056.83 1455.25 / 1455.25 648.75 / 648.75 Lab / Micro Data Result Diagrams: 11/14/21 05:20 11/14/21 05:20 Labs: Laboratory Results - last 24 hr 11/14/21 05:20: WBC 9.8, RBC 2.84 L, Hgb 8.0 L, Hct 25.3 L, MCV 89.1, MCH 28.2, MCHC 31.6 L, RDW Std Deviation 49.5 H, RDW Coeff of Luz Maria 15.2 H, Plt Count 237, MPV 10.2, Neut % (Auto) Not Reportable, Absolute Neuts (auto) 6.9, Absolute Lymphs (auto) 1.08, Total Counted 100, Neutrophils % (Manual) 58, Band Neutrophils % 13 H, Lymphocytes % (Manual) 11 L, Monocytes % (Manual) 2, Eosinophils % (Manual) 1, Metamyelocytes % 2 H, Myelocytes % 9 H, Promyelocytes % 4 H, Nucleated RBC % 1, Diff Path Review March, Platelet Estimate ADEQUATE, RBC Morphology NORM C+C, Anisocytosis 1+ 11/14/21 05:20: Sodium 141, Potassium 3.5, Chloride 106, Carbon Dioxide 28.0, Anion Gap 7, BUN 19 H, Creatinine 0.89, Estim Creat Clear Calc 49.90, Est GFR (MDRD) Af Amer 80, Est GFR (MDRD) Non-Af 66, BUN/Creatinine Ratio 21.3 H, Glucose 97, Calcium 8.2 L Micro: Microbiology 11/11/21 Unknown Tissue - Knee Gram Stain - Final 11/11/21 Unknown Tissue - Knee Wound Culture - Final Staphylococcus aureus 11/11/21 Unknown Tissue - Knee Anaerobic Culture - Preliminary 11/11/21 Unknown Tissue - Knee Gram Stain - Final 11/11/21 Unknown Tissue - Knee Wound Culture - Final Staphylococcus aureus 11/11/21 Unknown Tissue - Knee Anaerobic Culture - Preliminary 11/10/21 17:23 Fluid - Synovial (joint) Gram Stain - Final 11/10/21 17:23 Fluid - Synovial (joint) Body Fluid Culture - Final Staphylococcus aureus 11/10/21 17:23 Fluid - Synovial (joint) Anaerobic Culture - Final No anaerobic bacteria isolated. 11/12/21 13:00 Blood Culture (Wb) - Venous Blood Culture - Preliminary 11/11/21 Unknown Tissue - Knee Gram Stain - Final 11/11/21 Unknown Tissue - Knee Wound Culture - Final Staphylococcus aureus 11/10/21 11:30 Blood Culture (Wb) - Anticubital Right Blood Culture - Preliminary Staphylococcus aureus 11/11/21 05:40 Blood Culture (Wb) - Right Hand Blood Culture - Preliminary No growth in 48 hours. 11/10/21 15:10 Urine, Clean Catch Urine Culture - Final Mixed Gram Positive Organisms 11/10/21 11:20 Nasal Secretion SARS-CoV-2 Antigen (Rapid) - Final Physical Exam Narrative GENERAL: cooperative HEENT: Atraumatic; EYES; Anicteric, Normal Conjunctiva NECK; supple, normal thyroid, RESPIRATORY: Diminished to auscultation CARDIOVASCULAR: Regular S1 S2, GI: soft, normoactive bowel sounds, : No Renal angle tenderness; EXTREMITIES: No edema, no clubbing, MUSCULOSKELETAL: Left knee in surgical dressing NEURO: Awake; no lateralizing signs. SKIN: No Rash PSYCH; Flat affect Assessment & Plan Assessment/Plan (1) Effusion, left knee: (2) Septic joint of left knee joint: (3) Bacteremia: PLAN: Patient is a 76-year-old with left knee soreness and swelling. Diagnosed with Left prosthetic knee joint infection. 1. 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 On 11/11/2021. Cultures so far positive for methicillin sensitive staph aureus.Remains on broad-spectrum antibiotic therapy. TTE ordered with consultation placed to infectious disease 2. Hypertension - Blood pressure controlled, home medications continued with dose adjustment as needed 3.Hypokalemia corrected per protocol 4.Hypothyroidism - Patient is on levothyroxine home dose continued 5. Anemia - Secondary to chronic disorder monitoring H&H and transfuse if patient becomes symptomatic or hemoglobin falls below 7 6. Chronic kidney disease stage IIIa Kidney function at baseline 7. Depression with anxiety ? We will continue home meds 8. DVT prophylaxis ? [facility] Charges/Coding Visit Charges Inpatient E&M: 48674 Subs Hosp L2
[2021-11-14 10:06] VITALS: BP 129/60; PULSE 70; RESP 18; TEMP 37.1; O2SAT 94
[2021-11-14] MEDS: ALPRAZolam 0.5 MG Tablet PO ×2 (10:08→22:53)
[2021-11-14] MEDS: Ferrous Sulfate 325 MG Tablet PO (10:09)
[2021-11-14] MEDS: Aspirin 81 MG TAB.CHEW PO (10:09)
[2021-11-14] MEDS: Acetaminophen 325 MG Tablet 650 MG PO ×2 (10:09→19:47)
[2021-11-14] MEDS: hydroCHLOROthiazide 12.5mg 25 MG PO (10:10)
[2021-11-14] MEDS: FLUoxetine 20 MG Capsule PO (10:10)
[2021-11-14] MEDS: Enoxaparin 40 MG/0.4 ML Syringe SC (10:10)
[2021-11-14] MEDS: amLODIPine 5 MG Tablet PO (10:10)
[2021-11-14 13:29] LABS: Pathologist Review Reviewed
[2021-11-14 13:29] LABS: Pathologist Review Reviewed
[2021-11-14] MEDS: Cefazolin 2 GM in 0.9% Normal Saline 100 ML IV ×2 (15:34→21:04)
[2021-11-14 15:40] VITALS: BP 142/59; PULSE 71; RESP 18; TEMP 37.2; O2SAT 96
--- NOTE | 2021-11-14 15:44 | CON.PCM.ID_ITS ---
Assessment & Plan Assessment/Plan (1) Bacteremia: (2) Infection of total left knee replacement: PLAN: L knee MSSA PJI complicated by bacteremia - will check repeat bcx. Taken to OR 11/11/[address] Murphy for spacer placement. TTE showed no veg. Narrow abx to cefazolin. If repeat bcx are neg, plan on picc tomorrow. Will add rifampin for biofilm penetration; will decrease serum concentration of norvasc, so monitor BP. Will follow, thank you HPI Consult Data Date of Consult: 11/14/21 HPI Narrative HPI Narrative: KARINE FAIRCHILD, is a 76 F who presented 11/10 with several days L knee pain and swelling. No inciting event. Went to urgent care 11/08. Had aspiration done by Dr. Murphy. Prior h/o septic arthritis several years ago. Came to ED, admitted on vanc/zosyn, bcx and knee cx with mssa. Vanc stopped. Taken to OR 11/[address] Murphy for spacer placement. Unvaccinated for covid. Feeling ok, pain controlled, no fever, no n/v/d. Full ROS performed and neg except as noted above. [facility] Medical History Anemia Arthritis Cancer Depression Difficulty chewing History of stress test HTN (hypertension) Infection of total left knee replacement LEFT KNEE IRRIGATION Rheumatic fever Thyroid disease Vision loss of left eye Vision loss of right eye Home Medications Fish Oil 1,000 mg PO DAILY 05/18/15 [History Last Taken 12/15/15] ferrous sulfate 325 mg PO DAILY 05/18/15 [History Last Taken 12/15/15] fluoxetine 20 mg PO DAILY 05/18/15 [History Last Taken 12/15/15] acetaminophen [Tylenol] 650 mg PO Q6H PRN PRN #0 tablet 10/23/15 [Rx Last Taken 12/15/15] alprazolam 1 mg PO Q6H PRN PRN #0 tablet 10/23/15 [Rx Last Taken 01/19/16 1 MG] pyridoxine (vitamin B6) 100 mg PO DAILY 12/15/15 [History Last Taken 12/15/15] aspirin 81 mg PO DAILY@0800 08/02/17 [History Last Taken Unknown] hydrochlorothiazide 12.5 mg PO DAILY 08/09/20 [History Last Taken Unknown] levothyroxine 125 mcg PO DAILY 11/10/21 [History Last Taken Unknown] quetiapine 75 mg PO QHS 11/10/21 [History Last Taken Unknown] Allergy/AdvReac Type Severity Reaction Status Date / Time celecoxib [From Celebrex] AdvReac Severe Nausea Verified 11/10/21 09:55 Family History Father Bone cancer Mother Breast cancer Surgical History (Updated 11/10/21 @ 17:54 by Eneida Mejia) History of cataract surgery History of mastectomy History of total left knee replacement History of total right knee replacement Status post revision of total replacement of left knee Social History Smoking Status: Never smoker Physical Exam Const alert, oriented x3 and no apparent distress General Appearance: cooperative Exam Limitations: no limitations HEENT normocephalic and head/scalp atraumatic Eyes PERRL and EOMs intact bilaterally Neck supple and No nodes Resp normal air movement and clear to auscultation bilaterally Cardio regular rate and regular rhythm GI normal to inspection, nondistended, normoactive bowel sounds Extremity General Extremity: edema Skin Skin Narrative: knee wrapped Neuro CN's II-XII intact bilaterally Lab / Micro Data Result Diagrams: 11/14/21 05:20 11/14/21 05:20 Labs: Laboratory Results - last 24 hr 11/13/21 05:25: Diff Path Review Reviewed 11/14/21 05:20: WBC 9.8, RBC 2.84 L, Hgb 8.0 L, Hct 25.3 L, MCV 89.1, MCH 28.2, MCHC 31.6 L, RDW Std Deviation 49.5 H, RDW Coeff of Luz Maria 15.2 H, Plt Count 237, MPV 10.2, Neut % (Auto) Not Reportable, Absolute Neuts (auto) 6.9, Absolute Lymphs (auto) 1.08, Total Counted 100, Neutrophils % (Manual) 58, Band Neutrophils % 13 H, Lymphocytes % (Manual) 11 L, Monocytes % (Manual) 2, Eosinophils % (Manual) 1, Metamyelocytes % 2 H, Myelocytes % 9 H, Promyelocytes % 4 H, Nucleated RBC % 1, Diff Path Review Reviewed, Platelet Estimate ADEQUATE, RBC Morphology NORM C+C, Anisocytosis 1+ 11/14/21 05:20: Sodium 141, Potassium 3.5, Chloride 106, Carbon Dioxide 28.0, Anion Gap 7, BUN 19 H, Creatinine 0.89, Estim Creat Clear Calc 49.90, Est GFR (MDRD) Af Amer 80, Est GFR (MDRD) Non-Af 66, BUN/Creatinine Ratio 21.3 H, Glucose 97, Calcium 8.2 L Micro: Microbiology 11/12/21 13:00 Blood Culture (Wb) - Venous Blood Culture - Preliminary Staphylococcus aureus 11/11/21 Unknown Tissue - Knee Gram Stain - Final 11/11/21 Unknown Tissue - Knee Wound Culture - Final Staphylococcus aureus 11/11/21 Unknown Tissue - Knee Anaerobic Culture - Preliminary 11/11/21 Unknown Tissue - Knee Gram Stain - Final 11/11/21 Unknown Tissue - Knee Wound Culture - Final Staphylococcus aureus 11/11/21 Unknown Tissue - Knee Anaerobic Culture - Preliminary 11/10/21 17:23 Fluid - Synovial (joint) Gram Stain - Final 11/10/21 17:23 Fluid - Synovial (joint) Body Fluid Culture - Final Staphylococcus aureus 11/10/21 17:23 Fluid - Synovial (joint) Anaerobic Culture - Final No anaerobic bacteria isolated.
[2021-11-14] MEDS: Sodium Ferric Gluconat 250 MG in 0.9% Normal Saline 250 ML 135 MG IV (15:48)
--- NOTE | 2021-11-14 16:00 | CASEMGMT ---
DORIAN CM in to pt room. Pt son present. Pt lying in no distress. Pt and son wish for pt to return home to complete PT and IV atb. She states they did this in the past and used [facility] for infusion. They would like to use the same companies again. Faxed referral to [facility] at this time.
[2021-11-14 20:46] LABS: Vancomycin, Trough Level 4.5 ug/mL (5.0-15.0)
[2021-11-14 21:02] VITALS: BP 120/49; PULSE 75; RESP 18; TEMP 37.5; O2SAT 94
[2021-11-14] MEDS: rifAMPin 300 MG Capsule PO (21:04)
[2021-11-15 05:00] VITALS: BP 133/61; PULSE 72; RESP 16; TEMP 37.2; O2SAT 96
[2021-11-15] MEDS: Levothyroxine 125 MCG Tablet PO (05:13)
[2021-11-15] MEDS: Cefazolin 2 GM in 0.9% Normal Saline 100 ML IV (05:15)
[2021-11-15 06:19] LABS: Hematocrit 26.5 % (37-47); Hemoglobin 8.5 g/dL (12.0-15.0); Mean Corp Hgb Conc 32.1 g/dL (32-36); Mean Corpuscular Hgb 28.4 pg (27.0-32.0); Mean Corpuscular Volume 88.6 fL (81-99); Mean Platelet Vol. 11.1 fl (6.2-12.0); POSITIVE COUNT YES; POSITIVE MORPHOLOGY YES; Platelet Count 274 K/mm3 (150-450); RBC Distribution Width CV 15.4 % (11.6-14.6); RBC Distribution Width SD 49.8 fl (35.1-43.9); Red Blood Count 2.99 M/mm3 (4.2-5.4); White Blood Count 11.9 K/mm3 (4.4-11.0)
[2021-11-15 06:27] LABS: Differential Indicated MANUAL DIFF
[2021-11-15 06:41] LABS: Anion Gap 6 (5-15); BUN 15 mg/dL (7-18); BUN/Creat Ratio 17.4 RATIO (10-20); Calcium,Total 8.6 mg/dL (8.5-10.1); Chloride 107 mmol/L (98-107); Creatinine, Serum 0.86 mg/dL (0.55-1.02); EST Glomerular Filtration Rate 68 mL/min (>60); Est Glom Filt Rate - Afr Amer 83 mL/min (>60); Estimated Creatinine Clearance 51.64 ml/min; Glucose 100 mg/dL (74-106); Magnesium 2.4 mg/dL (1.6-2.6); Potassium 3.5 mmol/L (3.5-5.1); Sodium Level 141 mmol/L (136-145)
[2021-11-15 07:08] LABS: Absolute Lymphocyte Count 1.55 X10^3/uL (0.83-4.51); Absolute Neutrophil Count 7.7 X10^3/uL (2.0-7.7); Eosinophil 1 % (0-5); Lymphocyte 13 % (19-41); Metamyelocyte 5 % (0-1); Monocyte 8 % (0-10); Myelocyte 7 % (0-0); Neutrophil-Band 17 % (0-5); Neutrophil-Segmented 48 % (47-70); Platelet Estimate ADEQUATE (ADEQ); Promyelocyte 1 % (0-0); Total Cells Counted 100 (MANUAL DIFF)
[2021-11-15 07:09] LABS: Anisocytosis 1+; Red Cell Morphology NORM C+C NORMAL (NORM C&C)
--- NOTE | 2021-11-15 07:18 | PCM.PN.HOSP ---
Subjective Subjective Patient seen scheduled to undergo PICC line placement. She complains of feeling tired. Patient is anemic with hemoglobin 8.5. Did receive iron infusion the day prior. Objective Data Objective Data Vital Signs: Vital Signs Temp Pulse Resp BP Pulse Ox 99.0 F 72 16 133/61 H 96 11/15/21 05:00 11/15/21 05:00 11/15/21 05:00 11/15/21 05:00 11/15/21 05:00 Oxygen Flow Rate (L/min) 2 Oxygen Delivery Method Room Air Weight: 108.4 kg Body Mass Index (BMI) 39.7 Intake & Output: Intake and Output for Last 24 Hours 11/13/21 11/14/21 11/15/21 23:59 23:59 23:59 Intake Total 1457.25 / 1457.25 2338.75 / 2338.75 110 / 110 Output Total 2 / 2 Balance 1455.25 / 1455.25 2338.75 / 2338.75 110 / 110 Lab / Micro Data Result Diagrams: 11/15/21 05:20 11/15/21 05:20 Labs: Laboratory Results - last 24 hr 11/13/21 05:25: Diff Path Review Reviewed 11/14/21 05:20: Diff Path Review Reviewed 11/14/21 19:35: Vancomycin Trough 4.5 L 11/15/21 05:20: WBC 11.9 H, RBC 2.99 L, Hgb 8.5 L, Hct 26.5 L, MCV 88.6, MCH 28.4, MCHC 32.1, RDW Std Deviation 49.8 H, RDW Coeff of Luz Maria 15.4 H, Plt Count 274, MPV 11.1, Neut % (Auto) Not Reportable, Absolute Neuts (auto) 7.7, Absolute Lymphs (auto) 1.55, Total Counted 100, Neutrophils % (Manual) 48, Band Neutrophils % 17 H, Lymphocytes % (Manual) 13 L, Monocytes % (Manual) 8, Eosinophils % (Manual) 1, Metamyelocytes % 5 H, Myelocytes % 7 H, Promyelocytes % 1 H, Diff Path Review May , Platelet Estimate ADEQUATE, RBC Morphology NORM C+C, Anisocytosis 1+ 11/15/21 05:20: Sodium 141, Potassium 3.5, Chloride 107, Carbon Dioxide 28.0, Anion Gap 6, BUN 15, Creatinine 0.86, Estim Creat Clear Calc 51.64, Est GFR (MDRD) Af Amer 83, Est GFR (MDRD) Non-Af 68, BUN/Creatinine Ratio 17.4, Glucose 100, Calcium 8.6, Magnesium 2.4 Micro: Microbiology 11/12/21 13:00 Blood Culture (Wb) - Venous Blood Culture - Preliminary Staphylococcus aureus 11/11/21 Unknown Tissue - Knee Gram Stain - Final 11/11/21 Unknown Tissue - Knee Wound Culture - Final Staphylococcus aureus 11/11/21 Unknown Tissue - Knee Anaerobic Culture - Preliminary 11/11/21 Unknown Tissue - Knee Gram Stain - Final 11/11/21 Unknown Tissue - Knee Wound Culture - Final Staphylococcus aureus 11/11/21 Unknown Tissue - Knee Anaerobic Culture - Preliminary 11/10/21 17:23 Fluid - Synovial (joint) Gram Stain - Final 11/10/21 17:23 Fluid - Synovial (joint) Body Fluid Culture - Final Staphylococcus aureus 11/10/21 17:23 Fluid - Synovial (joint) Anaerobic Culture - Final No anaerobic bacteria isolated. 11/11/21 Unknown Tissue - Knee Gram Stain - Final 11/11/21 Unknown Tissue - Knee Wound Culture - Final Staphylococcus aureus 11/10/21 11:30 Blood Culture (Wb) - Anticubital Right Blood Culture - Preliminary Staphylococcus aureus 11/11/21 05:40 Blood Culture (Wb) - Right Hand Blood Culture - Preliminary No growth in 48 hours. 11/10/21 15:10 Urine, Clean Catch Urine Culture - Final Mixed Gram Positive Organisms 11/10/21 11:20 Nasal Secretion SARS-CoV-2 Antigen (Rapid) - Final Physical Exam Narrative GENERAL: cooperative HEENT: Atraumatic; EYES; Anicteric, Normal Conjunctiva NECK; supple, normal thyroid, RESPIRATORY: Diminished to auscultation CARDIOVASCULAR: Regular S1 S2, GI: soft, normoactive bowel sounds, : No Renal angle tenderness; EXTREMITIES: No edema, no clubbing, MUSCULOSKELETAL: Left knee in surgical dressing NEURO: Awake; no lateralizing signs. SKIN: No Rash PSYCH; Flat affect Assessment & Plan Assessment/Plan (1) Effusion, left knee: (2) Septic joint of left knee joint: (3) Bacteremia: PLAN: Patient is a 76-year-old with left knee soreness and swelling. Diagnosed with Left prosthetic knee joint infection. 1. 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 On 11/11/2021. Cultures so far positive for methicillin sensitive staph aureus.Remains on broad-spectrum antibiotic therapy. TTE ordered with consultation placed to infectious disease -11/15/2021 patient blood cultures as of 11/12/2021 was positive for staph. She had no growth on blood cultures obtained on 11/13/2021. Blood culture sent on 11/14/2021 pending. Case was discussed with Dr. Franco with infectious disease 2. Hypertension - Blood pressure controlled, home medications continued with dose adjustment as needed 3.Hypokalemia corrected per protocol 4.Hypothyroidism - Patient is on levothyroxine home dose continued 5. Anemia - Secondary to chronic disorder monitoring H&H and transfuse if patient becomes symptomatic or hemoglobin falls below 7 -11/15/2021. With patient being symptomatic and order was given for patient to receive iron infusion 6. Chronic kidney disease stage IIIa Kidney function at baseline 7. Depression with anxiety ? We will continue home meds 8. DVT prophylaxis ? SC Lovejuniorx Charges/Coding Visit Charges Inpatient E&M: 44118 Subs Hosp L2
[2021-11-15] MEDS: Aspirin 81 MG TAB.CHEW PO (08:09)
[2021-11-15 09:01] VITALS: BP 141/56; PULSE 75; RESP 18; TEMP 37.2; O2SAT 95
[2021-11-15] MEDS: hydroCHLOROthiazide 12.5mg 25 MG PO (09:41)
[2021-11-15] MEDS: Enoxaparin 40 MG/0.4 ML Syringe SC (09:41)
[2021-11-15] MEDS: amLODIPine 5 MG Tablet PO (09:41)
[2021-11-15] MEDS: ALPRAZolam 0.5 MG Tablet PO ×2 (09:41→16:44)
[2021-11-15] MEDS: FLUoxetine 20 MG Capsule PO (09:41)
--- NOTE | 2021-11-15 10:09 | CASEMGMT ---
Addendum entered by Ashley Ham 11/15/21 16:18: Received tc from [facility] who states they cannot deliver medication until picc line is in. Tamanna states she does not have a time yet for picc placement. Grace also notified Valeria of this as well. Left message with Grace that the plan is for pt to dc after picc still. RN CM to fax picc info first thing in the morning for delivery of med. Addendum entered by Ashley Ham 11/15/21 13:06: Per ID, pt able to skip 10pm dose tonight and start at home tomorrow. Notified hospitalist of this. DORIAN BURTON in to pt room, spoke to pt and son. They are aware that [facility] will provide therapy, [facility] will provide SN and that [facility] will provide the medication and infusion supplies. They are also aware that the cost is $30/day. They are agreeable to this. They are aware that she can skip the 10pm dose and that [facility] will be there in the morning to do the first dose at home. Pt/son deny further questions. Addendum entered by Ashley Ham 11/15/21 11:40: Received tc from [facility] who is able to do the SN part of pt care. They will start tomorrow morning. Original Note: Received tc from [facility] that pt cost of med and supplies would be $30/day. Faxed final script to [facility] at this time. TC to [facility] who state they can do the therapy part for pt. They contract with 2 other agencies for the nursing, she will call this RN MICHEAL back to make aware of which agency will see pt for SN. She is aware pt will dc today and has done IV atb before.
--- NOTE | 2021-11-15 10:18 | PN.ID_ITS ---
Physical Exam Narrative Feeling ok, no fever, no n/v/d Const alert and no apparent distress General Appearance: cooperative Resp normal air movement and clear to auscultation bilaterally Cardio regular rate and regular rhythm GI soft to palpation, non-tender and non-distended Skin no rashes or lesions noted ID ID: Route of nutrition/ use of supplements: [] Nutritional Intake: [] IV Site: [] Mehta Catheter: [] Assessment & Plan Assessment/Plan (1) Bacteremia: (2) Infection of total left knee replacement: PLAN: L knee MSSA PJI complicated by bacteremia - will check repeat bcx. Taken to OR 11/11/[address] Murphy for spacer placement. TTE showed no veg. Narrowed abx to cefazolin. Ok for picc. Added rifampin for biofilm penetration; will decrease serum concentration of norvasc, so monitor BP. Plan on d/c home with rifampin and cefazolin for 6 weeks, stop date 12/25/21 with weekly labs, ID followup in 2-3 weeks. Will follow, wrote rx, d/w onsite case manager
[2021-11-15] MEDS: rifAMPin 300 MG Capsule PO ×2 (11:36→20:55)
[2021-11-15] MEDS: Ferrous Sulfate 325 MG Tablet PO (12:09)
--- NOTE | 2021-11-15 13:22 | DS.PCM_ITS ---
Providers Date of Admission: 11/10/21 Primary Care Physician: CAYETANO Arreguin Consultations 11/10/21 17:38 Consult: Orthopedics Routine Consulting Provider: Judson Murphy Reason for Consult: septic knee, possible EMERGENT Consult: No MD Notified: Yes Date Notified: 11/10/21 Time Notified: 13:42 Method of Notification: Provider Initiated 11/11/21 11:23 Consult: Infectious Disease Routine Consulting Provider: Mauri Franco Reason for Consult: left knee PJI EMERGENT Consult: No Notified: Yes Date Notified: 11/11/21 Time Notified: 11:48 Method of Notification: Text Reason For Visit: SEPTIC KNEE Diagnosis Discharge Diagnosis (1) Bacteremia: Status: Acute Code(s): R78.81 - Bacteremia (2) Infection of total left knee replacement: Status: Acute Code(s): T84.54XA - Infection and inflammatory reaction due to internal left knee prosthesis, initial encounter Medications at Discharge Home Medications Fish Oil 1,000 mg PO DAILY 05/18/15 ferrous sulfate 325 mg PO DAILY 05/18/15 fluoxetine 20 mg PO DAILY 05/18/15 acetaminophen [Tylenol] 650 mg PO Q6H PRN PRN #0 tablet 10/23/15 alprazolam 1 mg PO Q6H PRN PRN #0 tablet 10/23/15 pyridoxine (vitamin B6) 100 mg PO DAILY 12/15/15 aspirin 81 mg PO DAILY@0800 08/02/17 hydrochlorothiazide 12.5 mg PO DAILY 08/09/20 levothyroxine 125 mcg PO DAILY 11/10/21 quetiapine 75 mg PO QHS 11/10/21 cefazolin 2 g IV Q8H 40 Days #120 ea 11/15/21 rifampin 300 mg PO BID 40 Days #80 cap 11/15/21 Hospital Course Summary of Care Provided Minutes Spent on Discharge: 35 Hospital Course: 1. 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 On 11/11/2021. Cultures so far positive for methicillin sensitive staph aureus.Remains on broad-spectrum antibiotic therapy. TTE ordered with consultation placed to infectious disease -11/15/2021 patient blood cultures as of 11/12/2021 was positive for staph. She had no growth on blood cultures obtained on 11/13/2021. Blood culture sent on 11/14/2021 pending. Case was discussed with Dr. Franco with infectious disease -Patient was discharged homeWith rifampin and cefazolin for 6 weeks with stop date on 12/25/2021 2. Hypertension - Blood pressure controlled, home medications continued with dose adjustment as needed 3.Hypokalemia corrected per protocol 4.Hypothyroidism - Patient is on levothyroxine home dose continued 5. Anemia - Secondary to chronic disorder monitoring H&H and transfuse if patient becomes symptomatic or hemoglobin falls below 7 -11/15/2021. With patient being symptomatic and order was given for patient to receive iron infusion 6. Chronic kidney disease stage IIIa Kidney function at baseline 7. Depression with anxiety ? We will continue home meds 8. DVT prophylaxis ? SC Lovenox Physical Exam Narrative GENERAL: cooperative HEENT: Atraumatic; EYES; Anicteric, Normal Conjunctiva NECK; supple, normal thyroid, RESPIRATORY: Diminished to auscultation CARDIOVASCULAR: Regular S1 S2, GI: soft, normoactive bowel sounds, : No Renal angle tenderness; EXTREMITIES: No edema, no clubbing, MUSCULOSKELETAL: Left knee in surgical dressing NEURO: Awake; no lateralizing signs. SKIN: No Rash PSYCH; Flat affect Weight / BMI Weight Weight: 108.4 kg Body Mass Index (BMI) 39.7 ABG / Lab / Microbiology Data Result Diagrams: 11/15/21 05:20 11/15/21 05:20 Laboratory: Laboratory Results - last 24 hr 11/13/21 05:25: Diff Path Review Reviewed 11/14/21 05:20: Diff Path Review Reviewed 11/14/21 19:35: Vancomycin Trough 4.5 L 11/15/21 05:20: WBC 11.9 H, RBC 2.99 L, Hgb 8.5 L, Hct 26.5 L, MCV 88.6, MCH 28.4, MCHC 32.1, RDW Std Deviation 49.8 H, RDW Coeff of Luz Maria 15.4 H, Plt Count 274, MPV 11.1, Neut % (Auto) Not Reportable, Absolute Neuts (auto) 7.7, Absolute Lymphs (auto) 1.55, Total Counted 100, Neutrophils % (Manual) 48, Band Neutrophils % 17 H, Lymphocytes % (Manual) 13 L, Monocytes % (Manual) 8, Eosinophils % (Manual) 1, Metamyelocytes % 5 H, Myelocytes % 7 H, Promyelocytes % 1 H, Diff Path Review March, Platelet Estimate ADEQUATE, RBC Morphology NORM C+C, Anisocytosis 1+ 11/15/21 05:20: Sodium 141, Potassium 3.5, Chloride 107, Carbon Dioxide 28.0, Anion Gap 6, BUN 15, Creatinine 0.86, Estim Creat Clear Calc 51.64, Est GFR (MDR D) Af Amer 83, Est GFR (MDRD) Non-Af 68, BUN/Creatinine Ratio 17.4, Glucose 100, Calcium 8.6, Magnesium 2.4 Microbiology: Microbiology 11/11/21 Unknown Tissue - Knee Gram Stain - Final 11/11/21 Unknown Tissue - Knee Wound Culture - Final Staphylococcus aureus 11/11/21 Unknown Tissue - Knee Anaerobic Culture - Final No anaerobic bacteria isolated. 11/11/21 Unknown Tissue - Knee Gram Stain - Final 11/11/21 Unknown Tissue - Knee Wound Culture - Final Staphylococcus aureus 11/11/21 Unknown Tissue - Knee Anaerobic Culture - Final No anaerobic bacteria isolated. 11/11/21 Unknown Tissue - Knee Gram Stain - Final 11/11/21 Unknown Tissue - Knee Wound Culture - Final Staphylococcus aureus 11/11/21 Unknown Tissue - Knee Anaerobic Culture - Final No anaerobic bacteria isolated. 11/13/21 09:32 Blood Culture (Wb) - Right Wrist Blood Culture - Preliminary No growth in 48 hours. 11/12/21 13:00 Blood Culture (Wb) - Venous Blood Culture - Preliminary Staphylococcus aureus 11/10/21 17:23 Fluid - Synovial (joint) Gram Stain - Final 11/10/21 17:23 Fluid - Synovial (joint) Body Fluid Culture - Final Staphylococcus aureus 11/10/21 17:23 Fluid - Synovial (joint) Anaerobic Culture - Final No anaerobic bacteria isolated. 11/10/21 11:30 Blood Culture (Wb) - Anticubital Right Blood Culture - Preliminary Staphylococcus aureus 11/11/21 05:40 Blood Culture (Wb) - Right Hand Blood Culture - Preliminary No growth in 48 hours. 11/10/21 15:10 Urine, Clean Catch Urine Culture - Final Mixed Gram Positive Organisms 11/10/21 11:20 Nasal Secretion SARS-CoV-2 Antigen (Rapid) - Final D/C Instructions Discharge Diet: No restrictions Discharge Activity: Return to Normal Activity Call your doctor if you observe: Fever of 101 or Higher, Shortness of breath, Fainting spells and Chest pain Meaningful Use Info Meaningful Use Diagnoses (Choose all that apply): None applicable Discharge Plan Admission Admit Date/Time: 11/10/21 13:39 Attending Provider: Antonio Kc Primary Care Provider: Malena Vargas Consulting Providers: Judson Murphy ; Mauri Franco Discharge Orders/Prescriptions Prescriptions: New rifampin 300 mg Capsule 300 mg PO BID 40 Days Qty: 80 RF: 0 cefazolin 1 gram recon soln 2 g IV Q8H 40 Days Qty: 120 RF: 0 No Action ferrous sulfate 325 MG tablet 325 mg PO DAILY RF: 0 fluoxetine 20 MG capsule 20 mg PO DAILY RF: 0 Fish Oil 500 MG capsule 1,000 mg PO DAILY RF: 0 acetaminophen [Tylenol] 325 MG tablet 650 mg PO Q6H PRN PRN (Reason: PAIN) Qty: 0 RF: 0 alprazolam 0.5 MG tablet 1 mg PO Q6H PRN PRN (Reason: ANXIETY) Qty: 0 RF: 0 pyridoxine (vitamin B6) 100 MG tablet 100 mg PO DAILY RF: 0 aspirin 81 MG tablet,chewable 81 mg PO DAILY@0800 RF: 0 hydrochlorothiazide 25 MG tablet 12.5 mg PO DAILY RF: 0 quetiapine 25 mg Tablet 75 mg PO QHS RF: 0 levothyroxine 125 mcg tablet 125 mcg PO DAILY RF: 0 Referrals / Follow Up: Mauri Franco MD [STAFF PHYSICIAN] - Within 2 Weeks Judson Murphy MD [STAFF PHYSICIAN] - Within 2 Weeks Malena Vargas PA [Primary Care Provider] - In 1 Week Disposition Disposition (needs filled in before D/C Order can be placed): Home Health Service Charges/Coding Visit Charges Inpatient E&M: 40606 Disch Hosp
--- NOTE | 2021-11-15 13:35 | PCM.DC ---
Discharge Instructions Diet Discharge Diet: No restrictions Dressing / Incision Call your doctor if you observe: Fever of 101 or Higher, Shortness of breath, Fainting spells and Chest pain Follow Up Care Test Results: Test results from this visit will be discussed in further detail at your follow-up appointment, if applicable. Discharge Plan Admission Admit Date/Time: 11/10/21 13:39 Attending Provider: Antonio Kc Primary Care Provider: Malena Vargas Consulting Providers: Judson Murphy ; Mauri Franco Discharge Orders/Prescriptions Prescriptions: New rifampin 300 mg Capsule 300 mg PO BID 40 Days Qty: 80 RF: 0 cefazolin 1 gram recon soln 2 g IV Q8H 40 Days Qty: 120 RF: 0 No Action ferrous sulfate 325 MG tablet 325 mg PO DAILY RF: 0 fluoxetine 20 MG capsule 20 mg PO DAILY RF: 0 Fish Oil 500 MG capsule 1,000 mg PO DAILY RF: 0 acetaminophen [Tylenol] 325 MG tablet 650 mg PO Q6H PRN PRN (Reason: PAIN) Qty: 0 RF: 0 alprazolam 0.5 MG tablet 1 mg PO Q6H PRN PRN (Reason: ANXIETY) Qty: 0 RF: 0 pyridoxine (vitamin B6) 100 MG tablet 100 mg PO DAILY RF: 0 aspirin 81 MG tablet,chewable 81 mg PO DAILY@0800 RF: 0 hydrochlorothiazide 25 MG tablet 12.5 mg PO DAILY RF: 0 quetiapine 25 mg Tablet 75 mg PO QHS RF: 0 levothyroxine 125 mcg tablet 125 mcg PO DAILY RF: 0 Referrals / Follow Up: Mauri Franco MD [STAFF PHYSICIAN] - Within 2 Weeks Judson Murphy MD [STAFF PHYSICIAN] - Within 2 Weeks Malena Vargas PA [Primary Care Provider] - In 1 Week Disposition Disposition (needs filled in before D/C Order can be placed): Home Health Service
--- NOTE | 2021-11-15 16:02 | NURSING ---
image processing engineer called again at this time for an ETA for PICC. Answering service stated they would send a message to the nurse again, awaiting a call back.
[2021-11-15 16:06] VITALS: BP 146/74; PULSE 77; RESP 18; TEMP 36.7; O2SAT 94
[2021-11-15] MEDS: Acetaminophen 325 MG Tablet 650 MG PO (16:43)
[2021-11-15 20:30] VITALS: BP 175/63; PULSE 73; RESP 18; TEMP 36.9; O2SAT 96
[2021-11-15 20:33] VITALS: BP 190/62; PULSE 73
[2021-11-15] MEDS: hydrALAZINE 20 MG/ML Vial 5 MG IV (20:33)
[2021-11-15] MEDS: 0.9% Saline Lock 10 ML Syringe IV ×2 (20:34→20:48)
[2021-11-15] MEDS: QUEtiapine 25 MG Tablet 75 MG PO (20:57)
[2021-11-16] VITALS (7 sets, daily range): BP systolic 142–212; BP diastolic 57–67; PULSE 63–73; RESP 16–18; TEMP 36.7–37.3; O2SAT 93–97
[2021-11-16] MEDS: hydrALAZINE 20 MG/ML Vial 5 MG IV (03:32)
[2021-11-16] MEDS: 0.9% Saline Lock 10 ML Syringe IV ×3 (03:32→09:17)
[2021-11-16] MEDS: ALPRAZolam 0.5 MG Tablet PO (03:32)
[2021-11-16] MEDS: Levothyroxine 125 MCG Tablet PO (05:03)
[2021-11-16] MEDS: amLODIPine 5 MG Tablet PO ×2 (05:05→09:17)
[2021-11-16 06:26] LABS: Hematocrit 27.2 % (37-47); Hemoglobin 8.6 g/dL (12.0-15.0); Mean Corp Hgb Conc 31.6 g/dL (32-36); Mean Corpuscular Hgb 27.8 pg (27.0-32.0); Mean Platelet Vol. 10.1 fl (6.2-12.0); POSITIVE COUNT YES; POSITIVE MORPHOLOGY YES; Platelet Count 348 K/mm3 (150-450); RBC Distribution Width CV 15.5 % (11.6-14.6); RBC Distribution Width SD 49.5 fl (35.1-43.9); Red Blood Count 3.09 M/mm3 (4.2-5.4)
[2021-11-16 06:48] LABS: Anion Gap 7 (5-15); BUN 16 mg/dL (7-18); BUN/Creat Ratio 20.6 RATIO (10-20); Calcium,Total 8.4 mg/dL (8.5-10.1); Chloride 103 mmol/L (98-107); Creatinine, Serum 0.78 mg/dL (0.55-1.02); Differential Indicated MANUAL DIFF; EST Glomerular Filtration Rate 77 mL/min (>60); Est Glom Filt Rate - Afr Amer 93 mL/min (>60); Estimated Creatinine Clearance 44.41 ml/min; Glucose 110 mg/dL (74-106); Potassium 3.5 mmol/L (3.5-5.1); Sodium Level 138 mmol/L (136-145)
[2021-11-16 07:09] LABS: Absolute Lymphocyte Count 1.26 X10^3/uL (0.83-4.51); Absolute Neutrophil Count 10.8 X10^3/uL (2.0-7.7); Metamyelocyte 1 % (0-1); Myelocyte 4 % (0-0); Neutrophil-Band 15 % (0-5); Neutrophil-Segmented 62 % (47-70); Promyelocyte 2 % (0-0); Total Cells Counted 100 (MANUAL DIFF)
[2021-11-16 07:10] LABS: Eosinophil 1 % (0-5); Lymphocyte 9 % (19-41); Monocyte 6 % (0-10); Platelet Estimate ADEQUATE (ADEQ); Red Cell Morphology NORM C+C NORMAL (NORM C&C)
[2021-11-16] MEDS: Aspirin 81 MG TAB.CHEW PO (07:40)
[2021-11-16] MEDS: hydroCHLOROthiazide 12.5mg 25 MG PO (07:40)
--- NOTE | 2021-11-16 08:56 | CASEMGMT ---
TC to [facility], spoke with [facility], they are able to see pt tomorrow morning for SOC as pt did not dc yesterday. TC to [facility], left message for Grace to make aware pt did not dc and plan for SOC tomorrow morning. Faxed picc info to [facility] as well as dc summary.
[2021-11-16] MEDS: hydrALAZINE 20 MG/ML Vial IV (09:16)
[2021-11-16] MEDS: rifAMPin 300 MG Capsule PO (09:16)
[2021-11-16] MEDS: FLUoxetine 20 MG Capsule PO (09:17)
[2021-11-16 10:00] LABS: Pathologist Review Reviewed
[2021-11-17 13:00] LABS: Pathologist Review Reviewed
== END 2021-11-16 10:52 | disposition home health service (06) | DRG 464 ==
LOC: ED 11:15 → MS3 16:49
PROVIDERS: Hospitalist; Internal Medicine; Specialist; Emergency Provider Student in an Organized Health Care Education/Training Program; Visit Provider Internal Medicine
PROC: 0SPD0JZ Removal of Synthetic Substitute from Left Knee Joint, Open Approach (ICD-10-PCS; CPT 27488; principal; 2021-11-11 11:35)
DX: T84.54XA Infection and inflammatory reaction due to internal left knee prosthesis, initial encounter (principal); M00.9 Pyogenic arthritis, unspecified; R78.81 Bacteremia; S72.422A Displaced fracture of lateral condyle of left femur, initial encounter for closed fracture; D62 Acute posthemorrhagic anemia; N18.31 Chronic kidney disease, stage 3a; I08.0 Rheumatic disorders of both mitral and aortic valves; F41.8 Other specified anxiety disorders; E03.9 Hypothyroidism, unspecified; I12.9 Hypertensive chronic kidney disease with stage 1 through stage 4 chronic kidney disease, or unspecified chronic kidney disease; E87.6 Hypokalemia; A49.01 Methicillin susceptible Staphylococcus aureus infection, unspecified site; E66.9 Obesity, unspecified; R01.1 Cardiac murmur, unspecified; Z79.1 Long term (current) use of non-steroidal anti-inflammatories (NSAID); Z79.01 Long term (current) use of anticoagulants; Z79.82 Long term (current) use of aspirin; Z66 Do not resuscitate; G47.00 Insomnia, unspecified
CPT/HCPCS: 36415; 36569; 71045; 73552; 73560; 80048; 80053; 80202; 81001; 83605; 83735; 84443; 84484; 85025; 85027; 85610; 85652; 85730; 86140; 87015; 87040; 87070; 87075; 87077; 87086; 87088; 87102; 87116; 87176; 87186; 87205; 87206; 87426; 89050; 89051; 89060; 93005; 93306; 97110; 97116; 97162; 97165; 97530; 97535; 99251; 99285; C1776; J7030; J7040; J7050; J7120; Q9957; A4216; G0463; J2405; J2916

== ENCOUNTER 2021-12-28 10:56 | Outpatient (CLI) | payer OTHER, SELFPAY ==
[2021-12-28 12:31] LABS: Erythrocyte Sedimentation Rate 86 mm/hr (0-30)
[2021-12-28 12:40] LABS: Absolute Lymphocyte Count 1.64 X10^3/uL (0.83-4.51); Absolute Neutrophil Count 3.6 X10^3/uL (2.0-7.7); Basophil# 0.04 X10^3/uL; Basophil% 0.6 % (0-1); Eosinophil# 0.31 X10^3/uL; Eosinophils% 4.9 % (0-5); Hematocrit 32.2 % (37-47); Hemoglobin 10.3 g/dL (12.0-15.0); Lymphocyte # 1.64 X10^3/ul (0.83-4.51); Lymphocyte % 26.1 % (19-41); Mean Corpuscular Hgb 27.8 pg (27.0-32.0); Mean Platelet Vol. 9.2 fl (6.2-12.0); Monocyte# 0.53 X10^3/uL; Monocyte% 8.4 % (0-10); NRBC Flagged by Analyzer 0 % (0-5); Neutrophil # 3.64 X10^3/uL (2.7-7.7); Neutrophil % 58.1 % (47-70); Platelet Count 278 K/mm3 (150-450); RBC Distribution Width CV 15.1 % (11.6-14.6); RBC Distribution Width SD 48.1 fl (35.1-43.9); White Blood Count 6.3 K/mm3 (4.4-11.0)
== END 2021-12-28 23:59 | disposition home or self-care (01) ==
LOC: LAB 10:58
PROVIDERS: Visit Provider Physician Assistant Surgical
DX: T84.54XD Infection and inflammatory reaction due to internal left knee prosthesis, subsequent encounter (principal); X58.XXXD Exposure to other specified factors, subsequent encounter
CPT/HCPCS: 36415; 85025; 85652; 86140

== ENCOUNTER 2022-01-09 09:11 | Outpatient (CLI) | payer OTHER, SELFPAY ==
[2022-01-09 09:35] LABS: Erythrocyte Sedimentation Rate 67 mm/hr (0-30)
[2022-01-09 09:37] LABS: Absolute Lymphocyte Count 1.39 X10^3/uL (0.83-4.51); Absolute Neutrophil Count 2.9 X10^3/uL (2.0-7.7); Basophil# 0.05 X10^3/uL; Eosinophil# 0.34 X10^3/uL; Eosinophils% 6.5 % (0-5); Hematocrit 31.3 % (37-47); Hemoglobin 9.8 g/dL (12.0-15.0); Lymphocyte # 1.39 X10^3/ul (0.83-4.51); Lymphocyte % 26.5 % (19-41); Mean Corp Hgb Conc 31.3 g/dL (32-36); Mean Corpuscular Hgb 27.5 pg (27.0-32.0); Mean Corpuscular Volume 87.9 fL (81-99); Mean Platelet Vol. 8.8 fl (6.2-12.0); Monocyte# 0.46 X10^3/uL; Monocyte% 8.8 % (0-10); NRBC Flagged by Analyzer 0 % (0-5); Neutrophil # 2.94 X10^3/uL (2.7-7.7); Neutrophil % 56.1 % (47-70); Platelet Count 231 K/mm3 (150-450); RBC Distribution Width SD 48.7 fl (35.1-43.9); Red Blood Count 3.56 M/mm3 (4.2-5.4); White Blood Count 5.2 K/mm3 (4.4-11.0)
== END 2022-01-09 23:59 | disposition home or self-care (01) ==
LOC: LAB 09:12
PROVIDERS: Referring Provider Physician Assistant Surgical; Visit Provider Physician Assistant Surgical
DX: T84.54XD Infection and inflammatory reaction due to internal left knee prosthesis, subsequent encounter (principal); X58.XXXD Exposure to other specified factors, subsequent encounter
CPT/HCPCS: 36415; 85025; 85652; 86140

== ENCOUNTER → 2022-03-13 | Outpatient (CLI) | payer OTHER, SELFPAY ==
[2022-03-13 16:39] LABS: Absolute Lymphocyte Count 1.62 X10^3/uL (0.83-4.51); Absolute Neutrophil Count 2.1 X10^3/uL (2.0-7.7); Basophil# 0.03 X10^3/uL; Basophil% 0.7 % (0-1); Eosinophil# 0.32 X10^3/uL; Eosinophils% 7.1 % (0-5); Hematocrit 31.1 % (37-47); Hemoglobin 9.4 g/dL (12.0-15.0); Lymphocyte # 1.62 X10^3/ul (0.83-4.51); Mean Corp Hgb Conc 30.2 g/dL (32-36); Mean Corpuscular Hgb 26.4 pg (27.0-32.0); Mean Corpuscular Volume 87.4 fL (81-99); Mean Platelet Vol. 9.6 fl (6.2-12.0); Monocyte# 0.39 X10^3/uL; Monocyte% 8.7 % (0-10); NRBC Flagged by Analyzer 0 % (0-5); Neutrophil # 2.11 X10^3/uL (2.7-7.7); Neutrophil % 46.8 % (47-70); Platelet Count 181 K/mm3 (150-450); RBC Distribution Width CV 17.3 % (11.6-14.6); RBC Distribution Width SD 55.9 fl (35.1-43.9); Red Blood Count 3.56 M/mm3 (4.2-5.4); White Blood Count 4.5 K/mm3 (4.4-11.0)
== END | disposition home or self-care (01) ==
LOC: LAB 15:57
DX: D64.9 Anemia, unspecified (principal)
CPT/HCPCS: 36415; 85025

== ENCOUNTER → 2022-08-07 | Outpatient (CLI) | payer SELFPAY ==
--- NOTE | 2022-08-07 10:21 | BI_ITS ---
MAMMOGRAPHY - UNILATERAL SCREENING: RIGHT BREAST REASON FOR EXAM: Female, 76 years old. Routine annual screening examination (unilateral). PERTINENT HISTORY: Personal history of breast cancer. Prior left mastectomy. TECHNIQUE: Digital unilateral breast kareem (3D mammographic acquisition) in the CC and MLO projections. 2-D mediolateral oblique (MLO) and craniocaudad (CC) views of both breasts were obtained. CAD: Full Field Digital Mammography with Computer Added Detection was performed. COMPARISON: Comparison is made with prior study 08/03/2021 and 08/02/2020. FINDINGS: Breast Composition: The breasts are heterogeneously dense, which may obscure small masses. There are no dominant masses or suspicious calcifications. No other significant abnormalities are identified. There has been no significant change since the prior study. BI/SCREEN MAMM (CAD) W/KAREEM UNI R IMPRESSION: Stable unilateral screening mammogram. Yearly follow-up mammogram recommended. (A) ASSESSMENT CATEGORY: BIRADS Category 1: Negative. A letter regarding these results will be sent to the patient by the facility within 30 days. Approximately 10% of breast cancers are not detected by mammography. A normal mammogram should not delay biopsy of a clinically suspicious abnormality. [id number] Electronically Signed: Bartolo Khalil MD at 12:24 EDT ,
== END | disposition home or self-care (01) ==
PROVIDERS: Visit Provider Internal Medicine Hematology & Oncology
DX: Z12.31 Encounter for screening mammogram for malignant neoplasm of breast (principal); Z90.12 Acquired absence of left breast and nipple; Z85.3 Personal history of malignant neoplasm of breast
CPT/HCPCS: 77063; 77067

== ENCOUNTER → 2023-08-08 | Outpatient (CLI) | payer SELFPAY ==
--- NOTE | 2023-08-08 10:26 | BI_ITS ---
MAMMOGRAPHY - UNILATERAL SCREENING: RIGHT BREAST REASON FOR EXAM: Female, 77 years old. Routine annual screening examination (unilateral). PERTINENT HISTORY: Personal history of breast cancer. Prior left mastectomy. Mother with breast cancer. TECHNIQUE: Digital unilateral breast kareem (3D mammographic acquisition) in the CC and MLO projections. 2-D mediolateral oblique (MLO) and craniocaudad (CC) views of both breasts were obtained. CAD: Full Field Digital Mammography with Computer Added Detection was performed. COMPARISON: Comparison is made with prior study dated August 07, 2022 and August 03, 2021. FINDINGS: Breast Composition: The breasts are heterogeneously dense, which may obscure small masses. There are no dominant masses or suspicious calcifications. No other significant abnormalities are identified. There has been no significant change since the prior study. BI/SCREEN MAMM (CAD) W/KAREEM UNI R IMPRESSION: Stable unilateral screening mammogram. Yearly follow-up mammogram recommended. (A) ASSESSMENT CATEGORY: BIRADS Category 1: Negative. A letter regarding these results will be sent to the patient by the facility within 30 days. Approximately 10% of breast cancers are not detected by mammography. A normal mammogram should not delay biopsy of a clinically suspicious abnormality. [id number] Electronically Signed: Bartolo Khalil MD at 11:33 EDT ,
== END | disposition home or self-care (01) ==
LOC: OPBI 10:25
PROVIDERS: PCP Family Medicine; Referring Provider Internal Medicine Hematology & Oncology; Visit Provider Internal Medicine Hematology & Oncology
DX: Z12.31 Encounter for screening mammogram for malignant neoplasm of breast (principal); Z85.3 Personal history of malignant neoplasm of breast
CPT/HCPCS: 77063; 77067

== ENCOUNTER → 2025-08-28 | Outpatient (CLI) | payer SELFPAY, OTHER | END | disposition home or self-care (01) | PROVIDERS: PCP Family Medicine; Referring Provider Internal Medicine Hematology & Oncology; Visit Provider Internal Medicine Hematology & Oncology | DX: Z12.31 Encounter for screening mammogram for malignant neoplasm of breast (principal) | CPT/HCPCS: 77063; 77067 ==